=== PATIENT | female | born 1930 | race Caucasian/White ===

== ENCOUNTER 2017-07-31 15:28 | Inpatient (IN) | payer MEDICARE ==
[2017-07-31] VITALS (11 sets, daily range): BP systolic 167–195; BP diastolic 74–80; PULSE 50–67; RESP 16–20; TEMP 96.7–98.6; O2SAT 95–98
[~2017-07-31] VITALS: Ht 162.6 cm; Wt 76.7 kg
[~2017-07-31 15:28] MED LIST: ALEN1TAB48 PO; ASPI1TAB69 PO; ATOR10TA15 PO; COQ-100C2 PO; D31000CA3 PO; ENOX30P SQ; LOSA100T PO; METO25TA3 PO; MULT-135 PO; NIFE1TAB PO; PERC5TAB12 PO
[2017-07-31] MEDS ORDERED: SODIUM CHLORIDE 0.9% FLUSH 10 ML FLUSH IVF PRN (15:45)
--- NOTE | 2017-07-31 15:46 | PD ---
HPI Chief Complaint: fall Time Seen by Provider: 15:36 Travel History International Travel<30 days: No Contact w/Intl Traveler<30days: No Traveled to known affect area: No History of Present Illness HPI 87-year-old female with history of hypertension, presents emergency department for evaluation of an injury sustained to her left lower extremity when she tripped and fell over a rug today. Patient states she fell landing on her knee. Upon [facility] arrival, patient had an obvious deformity of the distal left thigh. She had also struck her face. She reports very mild facial and leg pain at this time, stating that she got "a lot of pain medication" in the ambulance. She tells me that she did have epistaxis initially but this has resolved. She denies any nausea or vomiting. She reports no focal deficits or weakness. She denies any alterations in sensation. Patient does have history of previous left and right hip fracture repairs following mechanical falls as well. PFSH Past Medical History Cardiovascular Problems: Yes (htn) High Cholesterol: Yes Diminished Hearing: Yes Hypertension: Yes Past Surgical History Appendectomy: Yes Social History Alcohol Use: No Tobacco Use: No Substance Use: No Allergies-Medications (Allergen,Severity, Reaction): Coded Allergies: No Known Allergies (Verified Adverse Reaction, Unknown, 07/31/17) Reported Meds & Prescriptions Reported Meds & Active Scripts Active Metoprolol Tartrate 25 Mg Tab 25 Mg PO Q12HR Lovenox Inj (Enoxaparin Sodium) 30 Mg/0.3 Ml Syr 30 Mg SQ Q12H Percocet (Oxycodone-Acetaminophen) 5-325 mg Tab 1 Tab PO Q4H PRN Reported Vitamin D-3 (Cholecalciferol) 1,000 Unit Cap 4,000 Units PO DAILY Nifedipine ER 24 HR (Nifedipine) 90 Mg Tab 90 Mg PO DAILY Multi Vitamin (Multiple Vitamin) 1 Tab Tab 1 Tab PO DAILY Losartan (Losartan Potassium) 100 Mg Tab 100 Mg PO DAILY Coq-10 (Coenzyme Q10 (Ubidecarenone)) 100 Mg Cap 200 Mg PO DAILY Atorvastatin (Atorvastatin Calcium) 10 Mg Tab 10 Mg PO HS Aspirin 81 Mg Tabdr 81 Mg PO DAILY Alendronate (Alendronate Sodium) 70 Mg Tab 70 Mg PO Q7D Review of Systems Except as stated in HPI: all other systems reviewed are Neg Physical Exam Narrative GENERAL: Well-nourished elderly female patient, no acute distress SKIN: Focused skin assessment warm/dry. HEAD: Normocephalic. Obvious nasal trauma. EYES: Pupils equal and round. No scleral icterus. No injection or drainage. ENT: Mucosa pink and moist. No erythema or exudates. No uvular edema. No uvular , palatal, or tonsillar deviation. Airway patent. Nasal turbinates appear normal with clotted nasal blood, no purulent drainage or septal hematoma. NECK: Trachea midline. No JVD. CARDIOVASCULAR: Regular rate and rhythm. RESPIRATORY: No accessory muscle use. Clear to auscultation. Breath sounds equal bilaterally. GASTROINTESTINAL: Abdomen soft, non-tender, nondistended. Hepatic and splenic margins not palpable. MUSCULOSKELETAL: Shortening of the left lower extremity with a lateral deformity of the left distal femur. There is a small puncture wound but this does not appear to obviously be communicating with the fracture. No clubbing. No cyanosis. No edema. Distal pulses are palpable. Cap refills within normal limits. Patient is able to flex and extend the toes and ankle the affected extremity. NEUROLOGICAL: Awake and alert. No obvious cranial nerve deficits. Motor grossly within normal limits. Normal speech. PSYCHIATRIC: Appropriate mood and affect; insight and judgment normal. Data Data Last Documented VS Vital Signs Date Time Temp Pulse Resp B/P (MAP) Pulse Ox O2 Delivery O2 Flow Rate FiO2 07/31/17 16:55 98 Room Air 07/31/17 16:55 07/31/17 16:10 18 07/31/17 16:10 67 07/31/17 15:41 98.6 Orders Orders Femur (Ap & Lat/2vws) (07/31/17 ) Chest, Single Ap (07/31/17 ) Electrocardiogram (07/31/17 ) Basic Metabolic Panel (Bmp) (07/31/17 15:44) Complete Blood Count With Diff (07/31/17 15:44) Prothrombin Time / Inr (Pt) (07/31/17 15:44) Act Partial Throm Time (Ptt) (07/31/17 15:44) Type And Screen (07/31/17 15:44) Ct Brain W/O Iv Contrast(Rout) (07/31/17 15:44) Ct Cerv Spine W/O Contrast (07/31/17 15:44) Ct Facial Bones W/O Iv Cont (07/31/17 15:44) Iv Access Insert/Monitor (07/31/17 15:44) Ecg Monitoring (07/31/17 15:44) Oximetry (07/31/17 15:44) Oxygen Administration (07/31/17 15:44) Sodium Chloride 0.9% Flush (Ns Flush) (07/31/17 15:45) Urinary Catheter Management CHELI.Q8H (07/31/17 16:34) Ondansetron Odt (Zofran Odt) (07/31/17 16:45) Cefazolin Inj (Ancef Inj) (07/31/17 17:15) Traction (07/31/17 17:09) Labs Laboratory Tests Test 07/31/17 13:55 White Blood Count 12.4 TH/MM3 Red Blood Count 4.06 MIL/MM3 Hemoglobin 12.6 GM/DL Hematocrit 36.5 % Mean Corpuscular Volume 89.9 FL Mean Corpuscular Hemoglobin 31.1 PG Mean Corpuscular Hemoglobin Concent 34.5 % Red Cell Distribution Width 13.4 % Platelet Count 237 TH/MM3 Mean Platelet Volume 8.8 FL Neutrophils (%) (Auto) 74.9 % Lymphocytes (%) (Auto) 16.9 % Monocytes (%) (Auto) 6.6 % Eosinophils (%) (Auto) 1.2 % Basophils (%) (Auto) 0.4 % Neutrophils # (Auto) 9.3 TH/MM3 Lymphocytes # (Auto) 2.1 TH/MM3 Monocytes # (Auto) 0.8 TH/MM3 Eosinophils # (Auto) 0.1 TH/MM3 Basophils # (Auto) 0.0 TH/MM3 CBC Comment DIFF FINAL Differential Comment Prothrombin Time 10.0 SEC Prothromb Time International Ratio 1.0 RATIO Activated Partial Thromboplast Time 22.6 SEC Blood Urea Nitrogen 17 MG/DL Creatinine 0.78 MG/DL Random Glucose 114 MG/DL Calcium Level 8.8 MG/DL Sodium Level 140 MEQ/L Potassium Level 4.1 MEQ/L Chloride Level 105 MEQ/L Carbon Dioxide Level 27.4 MEQ/L Anion Gap 8 MEQ/L Estimat Glomerular Filtration Rate 70 ML/MIN MDM Medical Decision Making Medical Screen Exam Complete: Yes Emergency Medical Condition: Yes Medical Record Reviewed: Yes Differential Diagnosis Fracture versus contusion versus sprain versus dislocation versus intracranial hemorrhage versus minor head injury versus concussion Narrative Course 87-year-old female presents emergency department following a trip and fall. Patient appears without distress. The left lower extremity is in traction and remains neurovascularly intact. There is shortening and deformity of the left distal femur. Patient has been treated for pain prior to arrival and does not want any additional pain control at this time. Laboratory Tests Test 07/31/17 13:55 White Blood Count 12.4 TH/MM3 Red Blood Count 4.06 MIL/MM3 Hemoglobin 12.6 GM/DL Hematocrit 36.5 % Mean Corpuscular Volume 89.9 FL Mean Corpuscular Hemoglobin 31.1 PG Mean Corpuscular Hemoglobin Concent 34.5 % Red Cell Distribution Width 13.4 % Platelet Count 237 TH/MM3 Mean Platelet Volume 8.8 FL Neutrophils (%) (Auto) 74.9 % Lymphocytes (%) (Auto) 16.9 % Monocytes (%) (Auto) 6.6 % Eosinophils (%) (Auto) 1.2 % Basophils (%) (Auto) 0.4 % Neutrophils # (Auto) 9.3 TH/MM3 Lymphocytes # (Auto) 2.1 TH/MM3 Monocytes # (Auto) 0.8 TH/MM3 Eosinophils # (Auto) 0.1 TH/MM3 Basophils # (Auto) 0.0 TH/MM3 CBC Comment DIFF FINAL Differential Comment Prothrombin Time 10.0 SEC Prothromb Time International Ratio 1.0 RATIO Activated Partial Thromboplast Time 22.6 SEC Blood Urea Nitrogen 17 MG/DL Creatinine 0.78 MG/DL Random Glucose 114 MG/DL Calcium Level 8.8 MG/DL Sodium Level 140 MEQ/L Potassium Level 4.1 MEQ/L Chloride Level 105 MEQ/L Carbon Dioxide Level 27.4 MEQ/L Anion Gap 8 MEQ/L Estimat Glomerular Filtration Rate 70 ML/MIN Last Impressions Maxillofacial CT 07/31/171543 Signed Impressions: CONCLUSION: 1. Mildly displaced right nasal bone fracture. Head CT 07/31/171543 Signed Impressions: CONCLUSION: 1. Examination within normal limits for age. No acute intracranial abnormaliti es. Cervical Spine CT 07/31/171543 Signed Impressions: CONCLUSION: 1. Partial fusion cervical spine as above. Osteopenia. No acute fracture ident ified. Femur X-Ray 07/31/17 0000 Signed Impressions: CONCLUSION: Comminuted displaced distal femoral shaft fracture. Osteopenia. Chest X-Ray 07/31/17 0000 Signed Impressions: CONCLUSION: Minimal basilar atelectasis. No effusion or dense consolidation. I discussed the findings with my attending physician who is also assessed the patient. Anderson catheter has been placed to minimize movement and for adequate intake and output. Patient has not eaten since 10 AM this morning. She will remain n.p.o. Call was placed to orthopedic surgeon as well as hospitalist for admission. Plan is discussed with the patient and her family members. They are in agreement with this plan of care. [address] Garner, orthopedic surgeon monotypist. She requests Ancef IV , n.p.o., and patient to be placed in Deleon's traction. Diagnosis Primary Impression: Femur fracture, left Qualified Codes: S72.402A - Unspecified fracture of lower end of left femur, initial encounter for closed fracture Additional Impression: Nasal fracture Qualified Codes: S02.2XXA - Fracture of nasal bones, initial encounter for closed fracture Admitting Information Admitting Physician Requests: Admit Condition: Stable Cyndi Faria July 31, 2017 15:46
[2017-07-31 16:23] LABS: AUTOMATED NEUTROPHIL # 9.3 TH/MM3 (1.8-7.7); BASOPHIL % 0.4 % (0.0-2.0); EOSINOPHIL # 0.1 TH/MM3 (0-0.4); EOSINOPHIL % 1.2 % (0.0-4.0); HEMATOCRIT 36.5 % (35.0-46.0); HEMOGLOBIN 12.6 GM/DL (11.6-15.3); LYMPH % 16.9 % (9.0-44.0); LYMPHOCYTE # 2.1 TH/MM3 (1.0-4.8); MEAN CELL VOLUME 89.9 FL (80.0-100.0); MEAN CORPUSCULAR HEMOGLOBIN 31.1 PG (27.0-34.0); MEAN CORPUSCULAR HGB CONC 34.5 % (32.0-36.0); MEAN PLATELET VOLUME 8.8 FL (7.0-11.0); MONO % 6.6 % (0.0-8.0); MONOCYTE # 0.8 TH/MM3 (0-0.9); NEUT % 74.9 % (16.0-70.0); PLATELET COUNT 237 TH/MM3 (150-450); RED BLOOD COUNT 4.06 MIL/MM3 (4.00-5.30); RED CELL DISTRIBUTION WIDTH 13.4 % (11.6-17.2); WHITE BLOOD COUNT 12.4 TH/MM3 (4.0-11.0)
--- NOTE | 2017-07-31 16:26 | PD ---
Physical Exam Narrative I, Dr. Armendariz, have reviewed the advance practice practitioner's documentation and am in agreement, met with the patient face to face, made the diagnosis, and the medical decision making was done by me. *My assessment and Findings: Patient is a 87 year old female who comes in after a slip and fall with pain to her left leg. Exam shows obvious deformity of the left femur. Patient in traction. Pedal pulse intact. Data Data Last Documented VS Vital Signs Date Time Temp Pulse Resp B/P (MAP) Pulse Ox O2 Delivery O2 Flow Rate FiO2 07/31/17 17:30 58 18 169/80 (109) 96 Nasal Cannula 2.00 07/31/17 15:41 98.6 Orders Orders Femur (Ap & Lat/2vws) (07/31/17 ) Chest, Single Ap (07/31/17 ) Electrocardiogram (07/31/17 ) Basic Metabolic Panel (Bmp) (07/31/17 15:44) Complete Blood Count With Diff (07/31/17 15:44) Prothrombin Time / Inr (Pt) (07/31/17 15:44) Act Partial Throm Time (Ptt) (07/31/17 15:44) Type And Screen (07/31/17 15:44) Ct Brain W/O Iv Contrast(Rout) (07/31/17 15:44) Ct Cerv Spine W/O Contrast (07/31/17 15:44) Ct Facial Bones W/O Iv Cont (07/31/17 15:44) Iv Access Insert/Monitor (07/31/17 15:44) Ecg Monitoring (07/31/17 15:44) Oximetry (07/31/17 15:44) Oxygen Administration (07/31/17 15:44) Sodium Chloride 0.9% Flush (Ns Flush) (07/31/17 15:45) Urinary Catheter Management CHELI.Q8H (07/31/17 16:34) Ondansetron Odt (Zofran Odt) (07/31/17 16:45) Cefazolin Inj (Ancef Inj) (07/31/17 17:15) Traction (07/31/17 17:09) Consult Orthopedic (07/31/17 ) Diet Npo (07/31/17 Dinner) Metoclopramide Inj (Reglan Inj) (07/31/17 17:30) (Hub Use Only)Inp Phy Cons/Ref (07/31/17 ) Admit Order (Ed Use Only) (07/31/17 17:43) Labs Laboratory Tests Test 07/31/17 13:55 White Blood Count 12.4 TH/MM3 Red Blood Count 4.06 MIL/MM3 Hemoglobin 12.6 GM/DL Hematocrit 36.5 % Mean Corpuscular Volume 89.9 FL Mean Corpuscular Hemoglobin 31.1 PG Mean Corpuscular Hemoglobin Concent 34.5 % Red Cell Distribution Width 13.4 % Platelet Count 237 TH/MM3 Mean Platelet Volume 8.8 FL Neutrophils (%) (Auto) 74.9 % Lymphocytes (%) (Auto) 16.9 % Monocytes (%) (Auto) 6.6 % Eosinophils (%) (Auto) 1.2 % Basophils (%) (Auto) 0.4 % Neutrophils # (Auto) 9.3 TH/MM3 Lymphocytes # (Auto) 2.1 TH/MM3 Monocytes # (Auto) 0.8 TH/MM3 Eosinophils # (Auto) 0.1 TH/MM3 Basophils # (Auto) 0.0 TH/MM3 CBC Comment DIFF FINAL Differential Comment Prothrombin Time 10.0 SEC Prothromb Time International Ratio 1.0 RATIO Activated Partial Thromboplast Time 22.6 SEC Blood Urea Nitrogen 17 MG/DL Creatinine 0.78 MG/DL Random Glucose 114 MG/DL Calcium Level 8.8 MG/DL Sodium Level 140 MEQ/L Potassium Level 4.1 MEQ/L Chloride Level 105 MEQ/L Carbon Dioxide Level 27.4 MEQ/L Anion Gap 8 MEQ/L Estimat Glomerular Filtration Rate 70 ML/MIN [facility] Supervised Visit with AARON: Yes Narrative Course Exam shows femur fracture. Patient received 10mg morphine by EMS, did not require further pain medicine. Admitted for further management. Diagnosis Primary Impression: Femur fracture, left Qualified Codes: S72.402A - Unspecified fracture of lower end of left femur, initial encounter for closed fracture Admitting Information Admitting Physician Requests: Admit Scripts Docusate Sodium (Dok) 100 Mg Cap 100 MG PO BID for constipation precautions, #30 CAP Prov: Rena Chung 08/03/17 Calcium Carbonate-Vitamin D (Calcium 600+D 200) 600-200 Mg-Unit Tab 1 TAB PO BID for Nutritional Supplement, #60 TAB 0 Refills Prov: Prasad Oleary PA/Pharmacy Billing Adjudicator PA 08/01/17 Cholecalciferol (Vitamin D3) 2,000 Unit Cap 2000 UNITS PO DAILY for Nutritional Supplement, #60 CAP 0 Refills Prov: Prasad Olearys PA/Pharmacy Billing Adjudicator PA 08/01/17 Ergocalciferol (Ergocalciferol) 50,000 Unit Cap 87158 UNITS PO Q7D for Nutritional Supplement, #8 CAP Prov: Prsaad Oleary PA/Pharmacy Billing Adjudicator PA 08/01/17 Rivaroxaban (Xarelto) 10 Mg Tab 10 MG PO DAILY for Blood Clot Prevention, #14 TAB 0 Refills Prov: Prasad Oleary PA/Pharmacy Billing Adjudicator PA 08/01/17 Hydrocodone-Acetaminophen (Hydrocodone-Acetaminophen) 7.5 Mg-325 Mg Tab 1 TAB PO Q4H Y for PAIN, #60 TAB 0 Refills Prov: Prasad Oleary PA/Pharmacy Billing Adjudicator PA 08/01/17 Wheelchair Elevated Leg (Wheelchair Elevated Leg) 1 Mis Mis EA .XX DIRECTED, #1 0 Refills Prov: Prasad Oleary PA/Pharmacy Billing Adjudicator PA 08/01/17 Walker/Adult/Folding (Walker/Adult/Folding) 1 Mis Mis EA .XX DIRECTED, #1 0 Refills Prov: Prasad Oleary PA/Pharmacy Billing Adjudicator PA 08/01/17 Vee Armendariz MD July 31, 2017 16:25
--- NOTE | 2017-07-31 16:43 | RADRPT ---
EXAM DATE: 07/31/2017 4:31 PM EDT AGE/SEX: 87 years / Female INDICATIONS: Pain in left leg post fall today. CLINICAL DATA: This is the patient's initial encounter. Patient reports that signs and symptoms have been present for 1 day and indicates a pain score of 10/10. MEDICAL/SURGICAL HISTORY: None. None. COMPARISON: [facility] – [place], CHEST SINGLE AP, 01/20/2016. . FINDINGS: No focal consolidation. Minimal basilar atelectasis. Mild cardiomegaly. Sclerotic changes in the righ t fifth rib posteriorly of uncertain etiology. Could be related to prior trauma. Remote left proximal humerus fracture with some residual deformity. CONCLUSION: Minimal basilar atelectasis. No effusion or dense consolidation. Electronically signed by: Hussein Collins MD 07/31/2017 4:42 PM EDT
--- NOTE | 2017-07-31 16:44 | RADRPT ---
EXAM DATE: 07/31/2017 4:33 PM EDT AGE/SEX: 87 years / Female INDICATIONS: Pain in left leg post fall today. CLINICAL DATA: This is the patient's initial encounter. Patient reports that signs and symptoms have been present for 1 day and indicates a pain score of 10/10. MEDICAL/SURGICAL HISTORY: None. None. COMPARISON: No prior [place] exams available for comparison. FINDINGS: There is previous fixation of the proximal left femur. There is a comminuted displaced fracture of th e distal femoral shaft with proximal fragment laterally displaced. Bones are osteopenic. CONCLUSION: Comminuted displaced distal femoral shaft fracture. Osteopenia. Electronically signed by: Hussein Collins MD 07/31/2017 4:43 PM EDT
[2017-07-31 16:45] LABS: BICARBONATE 27.4 MEQ/L (21.0-32.0); CALCIUM 8.8 MG/DL (8.5-10.1); CREATININE 0.78 MG/DL (0.50-1.00)
[2017-07-31] MEDS ORDERED: ONDANSETRON ODT 4 MG TAB PO ONE (16:45)
--- NOTE | 2017-07-31 16:49 | RADRPT ---
EXAM DATE: 07/31/2017 4:36 PM EDT AGE/SEX: 87 years / Female INDICATIONS: Trauma, fall CLINICAL DATA: This is the patient's initial encounter. Patient reports that signs and symptoms have been present for 1 day and indicates a pain score of 2/10. MEDICAL/SURGICAL HISTORY: Hypertension. None. RADIATION DOSE: 62.99 CTDI (mGy) COMPARISON: No prior [place] exams available for comparison. TECHNIQUE: CT of the head without contrast. Using automated exposure control and adjustment of the mA and/or kV according to patient size, radiation dose was kept as low as reasonably achievable to ob tain optimal diagnostic quality images. FINDINGS: Cerebrum: The ventricles are normal for age. No evidence of midline shift, mass lesion, hemorrhage or acute infarction. No extraaxial fluid collections are seen. Posterior Fossa: The cerebellum and brainstem are intact. The 4th ventricle is midline. The cerebe llopontine angle is unremarkable. Extracranial: The visualized portion of the orbits is intact. Skull: The calvaria is intact. No evidence of skull fracture. CONCLUSION: 1. Examination within normal limits for age. No acute intracranial abnormalities. Electronically signed by: Hussein Collins MD 07/31/2017 4:48 PM EDT
--- NOTE | 2017-07-31 16:52 | RADRPT ---
EXAM DATE: 07/31/2017 4:46 PM EDT AGE/SEX: 87 years / Female INDICATIONS: Trauma, fall CLINICAL DATA: This is the patient's initial encounter. Patient reports that signs and symptoms have been present for 1 day and indicates a pain score of 2/10. MEDICAL/SURGICAL HISTORY: Hypertension. None. RADIATION DOSE: 18.76 CTDI (mGy) COMPARISON: No prior [place] exams available for comparison. TECHNIQUE: Contiguous axial images were obtained using helical multirow detector technique. The vol umetric data was post-processed with multiplanar reconstruction in oblique axial, sagittal, and coron al planes. Using automated exposure control and adjustment of the mA and/or kV according to patient s ize, radiation dose was kept as low as reasonably achievable to obtain optimal diagnostic quality denis ges. FINDINGS: There is fusion across C5-6-7-T1. Slight reversal of normal cervical lordosis. Bones osteopenic. Mode rate degenerative changes at C3-4-5 and T1-2. No acute fracture is identified. There is mild lateral recess stenosis at C4-5 bilaterally. CONCLUSION: 1. Partial fusion cervical spine as above. Osteopenia. No acute fracture identified. Electronically signed by: Hussein Collins MD 07/31/2017 4:51 PM EDT
--- NOTE | 2017-07-31 16:54 | RADRPT ---
EXAM DATE: 07/31/2017 4:46 PM EDT AGE/SEX: 87 years / Female INDICATIONS: Trauma, fall CLINICAL DATA: This is the patient's initial encounter. Patient reports that signs and symptoms have been present for 1 day and indicates a pain score of 2/10. MEDICAL/SURGICAL HISTORY: Hypertension. None. RADIATION DOSE: 64.25 CTDI (mGy) COMPARISON: No prior [place] exams available for comparison. TECHNIQUE: Contiguous images in the axial and coronal planes were obtained using helical multirow de tector technique. Using automated exposure control and adjustment of the mA and/or kV according to p atient size, radiation dose was kept as low as reasonably achievable to obtain optimal diagnostic papi lity images. FINDINGS: There is a mildly displaced right nasal bone fracture. Paranasal sinuses are unremarkable. No other f acial bone fractures are identified. Globes intact. CONCLUSION: 1. Mildly displaced right nasal bone fracture. Electronically signed by: Hussein Collins MD 07/31/2017 4:53 PM EDT
[2017-07-31] MEDS ORDERED: METOCLOPRAMIDE HCL 10 MG/2 ML VIAL IV PUSH ONE (17:30)
[2017-07-31] MEDS ORDERED: COEN200C (19:44)
[2017-07-31] MEDS ORDERED: MULT-65 PO (19:44)
[2017-07-31] MEDS ORDERED: ASPI-516 CHEW (19:44)
--- NOTE | 2017-07-31 22:11 | HHI.HP ---
HPI Service [facility] Hospitalists Primary Care Physician Regis Mcgrath D.O. Admission Diagnosis L distal femur fx; nasal fx Chief Complaint: fall with left distal femur fracture ,nasal fracture Travel History International Travel<30 Days: No Contact w/Intl Traveler <30 Da: No Traveled to Known Affected Are: No History of Present Illness 87-year-old female with history of hypertension, presents emergency department for evaluation of an injury sustained to her left lower extremity when she tripped and fell over a rug today. Patient states she fell landing on her knee. Upon [facility] arrival, patient had an obvious deformity of the distal left thigh. She had also struck her face. She reports very mild facial and leg pain at this time, stating that she got "a lot of pain medication" in the ambulance. She tells me that she did have epistaxis initially but this has resolved. She denies any nausea or vomiting. She reports no focal deficits or weakness. She denies any alterations in sensation. Patient does have history of previous left and right hip fracture repairs following mechanical falls . In er found to have left femer fracture and nasal fracture admit for surgery, also has small wound less then1 cm on left leg not communicating with fracture will start on antibiotics. Review of Systems Musculoskeletal: COMPLAINS OF: Joint pain Past Family Social History Past Medical History hypertension,hyperlipidemia, Past Surgical History left and rt hip surgery appendix Reported Medications Vitamin D-3 (Cholecalciferol) 1,000 Unit Cap 4,000 Units PO DAILY Nifedipine ER 24 HR (Nifedipine) 90 Mg Tab 90 Mg PO DAILY Multi Vitamin (Multiple Vitamin) 1 Tab Tab 1 Tab PO DAILY Losartan (Losartan Potassium) 100 Mg Tab 100 Mg PO DAILY Coq-10 (Coenzyme Q10 (Ubidecarenone)) 100 Mg Cap 200 Mg PO DAILY Atorvastatin (Atorvastatin Calcium) 10 Mg Tab 10 Mg PO HS Aspirin 81 Mg Tabdr 81 Mg PO DAILY Alendronate (Tamara Allergies: Coded Allergies: No Known Allergies (Verified Allergy, Unknown, 07/31/17) Social History NS,ND Physical Exam Vital Signs Vital Signs Date Time Temp Pulse Resp B/P (MAP) Pulse Ox O2 Delivery O2 Flow Rate FiO2 07/31/17 21:36 55 18 167/74 (105) 98 Venturi Mask 28 07/31/17 19:44 56 20 179/77 (111) 98 Venturi Mask 28 07/31/17 19:07 60 20 184/78 (113) 97 Venturi Mask 28 07/31/17 18:30 50 18 184/77 (112) 95 Venturi Mask 28 07/31/17 17:30 58 18 169/80 (109) 96 Nasal Cannula 2.00 07/31/17 16:55 98 Room Air 07/31/17 16:55 98 Room Air 07/31/17 16:10 18 98 Room Air 07/31/17 16:10 67 18 195/79 (117) 98 Room Air 07/31/17 15:41 98.6 62 18 195/79 (117) 96 Physical Exam GENERAL: This is a well-nourished, well-developed patient, in no apparent distress. SKIN: No rashes, ecchymoses or lesions. Cool and dry. HEAD: Atraumatic. Normocephalic. No temporal or scalp tenderness. EYES: Pupils equal round and reactive. Extraocular motions intact. No scleral icterus. No injection or drainage. ENT: Nose without bleeding now,no purulent drainage or septal hematoma. Throat without erythema, tonsillar hypertrophy or exudate. Uvula midline. Airway patent. does have nasal fracture NECK: Trachea midline. No JVD or lymphadenopathy. Supple, nontender, no meningeal signs. CARDIOVASCULAR: Regular rate and rhythm without murmurs, gallops, or rubs. RESPIRATORY: Clear to auscultation. Breath sounds equal bilaterally. No wheezes , rales, or rhonchi. GASTROINTESTINAL: Abdomen soft, non-tender, nondistended. No hepato-splenomegaly , or palpable masses. No guarding. MUSCULOSKELETAL: Extremities without clubbing, cyanosis, or edema. lateral deformity left femur,small wound left leg, effusion, or edema noted. No calf tenderness. Negative Homans sign bilaterally. NEUROLOGICAL: Awake and alert. Cranial nerves II through XII intact. Motor and sensory grossly within normal limits. Five out of 5 muscle strength in all muscle groups. Normal speech. Laboratory Laboratory Tests Test 07/31/17 13:55 White Blood Count 12.4 Red Blood Count 4.06 Hemoglobin 12.6 Hematocrit 36.5 Mean Corpuscular Volume 89.9 Mean Corpuscular Hemoglobin 31.1 Mean Corpuscular Hemoglobin Concent 34.5 Red Cell Distribution Width 13.4 Platelet Count 237 Mean Platelet Volume 8.8 Neutrophils (%) (Auto) 74.9 Lymphocytes (%) (Auto) 16.9 Monocytes (%) (Auto) 6.6 Eosinophils (%) (Auto) 1.2 Basophils (%) (Auto) 0.4 Neutrophils # (Auto) 9.3 Lymphocytes # (Auto) 2.1 Monocytes # (Auto) 0.8 Eosinophils # (Auto) 0.1 Basophils # (Auto) 0.0 CBC Comment DIFF FINAL Differential Comment Prothrombin Time 10.0 Prothromb Time International Ratio 1.0 Activated Partial Thromboplast Time 22.6 Blood Urea Nitrogen 17 Creatinine 0.78 Random Glucose 114 Calcium Level 8.8 Sodium Level 140 Potassium Level 4.1 Chloride Level 105 Carbon Dioxide Level 27.4 Anion Gap 8 Estimat Glomerular Filtration Rate 70 Result Diagram: 07/31/17 1355 07/31/17 1355 Imaging Last [address] 07/31/17 1544 Signed Impressions: CONCLUSION: 1. Mildly displaced right nasal bone fracture. Head CT 07/31/17 1544 Signed Impressions: CONCLUSION: 1. Examination within normal limits for age. No acute intracranial abnormaliti es. Cervical Spine CT 07/31/17 1544 Signed Impressions: CONCLUSION: 1. Partial fusion cervical spine as above. Osteopenia. No acute fracture ident ified. Femur X-Ray 07/31/17 0000 Signed Impressions: CONCLUSION: Comminuted displaced distal femoral shaft fracture. Osteopenia. Chest X-Ray 07/31/17 0000 Signed Impressions: CONCLUSION: Minimal basilar atelectasis. No effusion or dense consolidation. Course in er given splint and started on oxygen started antibiotics Caprini VTE Risk Assessment Caprini VTE Risk Assessment: Mod/High Risk (score >= 2) Caprini Risk Assessment Model Point Value = 1 Point Value = 2 Point Value = 3 Point Value = 5 Age 41-60 Minor surgery BMI > 25 kg/m2 Swollen legs Varicose veins or History of unexplained or recurrent spontaneous Oral contraceptives or hormone replacement Sepsis (< 1 month) Serious lung disease, including pneumonia (< 1 month) Abnormal pulmonary function Acute myocardial infarction Congestive heart failure (< 1 month) History of inflammatory bowel disease Medical patient at bed rest Age 61-74 Arthroscopic surgery Major open surgery (> 45 min) Laparoscopic surgery (> 45 min) Malignancy Confined to bed (> 72 hours) Immobilizing plaster cast Central venous access Age >= 75 History of VTE Family history of VTE Factor V Leiden Prothrombin [id number] Lupus anticoagulant Anticardiolipin antibodies Elevated serum homocysteine Heparin-induced thrombocytopenia Other congenital or acquired thrombophilia Stroke (< 1 month) Elective arthroplasty Hip, pelvis, or leg fracture Acute spinal cord injury (< 1 month) Prophylaxis Regimen Total Risk Factor Score Risk Level Prophylaxis Regimen 0-1 Low Early ambulation 2 Moderate Order ONE of the following: *Sequential Compression Device (SCD) *Heparin 5000 units SQ BID 3-4 Higher Order ONE of the following medications: *Heparin 5000 units SQ TID *Enoxaparin/Lovenox 40 mg SQ daily (WT < 150 kg, CrCl > 30 mL/min) *Enoxaparin/Lovenox 30 mg SQ daily (WT < 150 kg, CrCl > 10-29 mL/min) *Enoxaparin/Lovenox 30 mg SQ BID (WT < 150 kg, CrCl > 30 mL/min) AND/OR *Sequential Compression Device (SCD) 5 or more Highest Order ONE of the following medications: *Heparin 5000 units SQ TID (Preferred with Epidurals) *Enoxaparin/Lovenox 40 mg SQ daily (WT < 150 kg, CrCl > 30 mL/min) *Enoxaparin/Lovenox 30 mg SQ daily (WT < 150 kg, CrCl > 10-29 mL/min) *Enoxaparin/Lovenox 30 mg SQ BID (WT < 150 kg, CrCl > 30 mL/min) AND *Sequential Compression Device (SCD) Assessment and Plan Problem List: (1) Femur fracture, left ICD Codes: S72.92XA - Unspecified fracture of left femur, initial encounter for closed fracture Status: Acute Plan: consult orthopedics NPO (2) Nasal fracture ICD Codes: S02.2XXA - Fracture of nasal bones, initial encounter for closed fracture Status: Acute Plan: will need ENT evaluation (3) Hypertension ICD Codes: I10 - Essential (primary) hypertension Status: Chronic Plan: continue current medications Assessment and Plan further plan as case develops has small wound less 1 cm not draining did start on ancef IV and will follow up on wound with nursing care Code Status full Discussed Condition With patient and family Physician Certification 2 Midnight Certification Type: Admission for Inpatient Services Order for Inpatient Services The services are ordered in accordance with Medicare regulations or non- Medicare payer requirements, as applicable. In the case of services not specified as inpatient-only, they are appropriately provided as inpatient services in accordance with the 2-midnight benchmark. Estimated LOS (days): 3 3 days is the estimated time the patient will need to remain in the hospital, assuming treatment plan goals are met and no additional complications. Post-Hospital Plan: SNF Problem Qualifiers (1) Femur fracture, left: Qualified Codes: S72.402A - Unspecified fracture of lower end of left femur, initial encounter for closed fracture (2) Nasal fracture: Qualified Codes: S02.2XXA - Fracture of nasal bones, initial encounter for closed fracture Som Reid MD July 31, 2017 22:11
[2017-07-31] MEDS ORDERED: MORPHINE SULFATE 4 MG/ML INJ IV PUSH PRN (22:15)
[2017-07-31] MEDS ORDERED: LACTATED RINGER'S 1000 ML IV PRN (23:15)
[2017-07-31] MEDS ORDERED: SODIUM CHLORID 0.9% 500 ML IV PRN (23:15)
[2017-07-31] MEDS ORDERED: POVIDONE IODINE 5% (ANTISEPSIS KIT) 4 APPLICATIONS EACH NARE PRN (23:15)
[2017-07-31] MEDS ORDERED: CHLORHEXIDINE GLUCONATE 2 % 1 PACK (2 CLOTHS) TOPICAL PRN (23:15)
[2017-08-01] VITALS (8 sets, daily range): BP systolic 128–155; BP diastolic 58–68; PULSE 49–86; RESP 17–18; TEMP 97.1–98.5; O2SAT 92–97
[2017-08-01 06:15] LABS: AUTOMATED NEUTROPHIL # 7.8 TH/MM3 (1.8-7.7); BASOPHIL % 0.2 % (0.0-2.0); EOSINOPHIL % 0.4 % (0.0-4.0); HEMATOCRIT 32.8 % (35.0-46.0); HEMOGLOBIN 11.1 GM/DL (11.6-15.3); LYMPHOCYTE # 2.2 TH/MM3 (1.0-4.8); MEAN CELL VOLUME 91.8 FL (80.0-100.0); MEAN CORPUSCULAR HEMOGLOBIN 31.1 PG (27.0-34.0); MEAN CORPUSCULAR HGB CONC 33.9 % (32.0-36.0); MEAN PLATELET VOLUME 8.3 FL (7.0-11.0); MONOCYTE # 0.9 TH/MM3 (0-0.9); NEUT % 71.4 % (16.0-70.0); PLATELET COUNT 236 TH/MM3 (150-450); RED BLOOD COUNT 3.57 MIL/MM3 (4.00-5.30); RED CELL DISTRIBUTION WIDTH 13.2 % (11.6-17.2); WHITE BLOOD COUNT 10.9 TH/MM3 (4.0-11.0)
--- NOTE | 2017-08-01 07:19 | PD.ORT.PN ---
Subjective Subjective Remarks s/p fall at home left knee pain no other complaints. Objective Vitals Vital Signs Date Time Temp Pulse Resp B/P (MAP) Pulse Ox O2 Delivery O2 Flow Rate FiO2 08/01/17 04:00 49 08/01/17 03:00 97.1 52 17 134/63 (86) 97 07/31/17 23:42 56 07/31/17 22:50 96.7 56 17 177/77 (110) 95 07/31/17 22:44 07/31/17 22:12 16 97 Nasal Cannula 3.00 07/31/17 21:36 55 18 167/74 (105) 98 Venturi Mask 07/31/17 19:44 56 20 179/77 (111) 98 Venturi Mask 07/31/17 19:07 60 20 184/78 (113) 97 Venturi Mask 07/31/17 18:30 50 18 184/77 (112) 95 Venturi Mask 07/31/17 17:30 58 18 169/80 (109) 96 Nasal Cannula 2.00 07/31/17 16:55 98 Room Air 07/31/17 16:55 98 Room Air 07/31/17 16:10 18 98 Room Air 07/31/17 16:10 67 18 195/79 (117) 98 Room Air 07/31/17 15:41 98.6 62 18 195/79 (117) 96 I/O 07/31/17 07/31/17 07/31/17 08/01/17 08/01/17 08/01/17 07:00 15:00 23:00 07:00 15:00 23:00 Intake Total 0 ml Output Total 1000 ml Balance -1000 ml Intake Oral 0 ml Output Urine Total 1000 ml # Bowel Movements 0 Result Diagram: 08/01/17 0525 07/31/17 1355 Other Results Laboratory Tests Test 07/31/17 13:55 Prothromb Time International Ratio 1.0 RATIO Prothrombin Time 10.0 SEC (9.8-11.6) Imaging Last [address] 07/31/17 2936 Signed Impressions: CONCLUSION: 1. Mildly displaced right nasal bone fracture. Head CT 07/31/17 0282 Signed Impressions: CONCLUSION: 1. Examination within normal limits for age. No acute intracranial abnormaliti es. Cervical Spine CT 07/31/17 1544 Signed Impressions: CONCLUSION: 1. Partial fusion cervical spine as above. Osteopenia. No acute fracture ident ified. Objective Remarks LLE: dressing in place. +bucks traction. NVI Assessment & Plan Assessment and Plan 1) Left distal Femur Fx -npo -consents -surgery today with Prasad Grant/Partition Notcher ALONZO August 01, 2017 07:19
[2017-08-01] MEDS: LOSARTAN 50 MG TAB PO SCH (08:05)
[2017-08-01] MEDS: NIFEdipine 90 MG SUSTAINED RELEASE TAB PO SCH (08:05)
[2017-08-01] MEDS: MULTIVITAMIN TAB PO SCH (08:05)
[2017-08-01] MEDS ORDERED: MORPHINE SULFATE 4 MG/ML INJ IV PUSH PRN (08:15)
[2017-08-01] MEDS ORDERED: CHOLECALCIFEROL (VIT D3) 1000 UNIT TAB PO SCH (09:00)
[2017-08-01] MEDS ORDERED: ACETAMINOPHEN/HYDROcodone 325 MG/5 MG TAB PO PRN (10:00)
[2017-08-01] MEDS ORDERED: ACETAMINOPHEN 325 MG TAB PO PRN (10:00)
--- NOTE | 2017-08-01 10:10 | HHI.PR ---
Subjective Remarks Patient laying in bed with traction awaiting surgery denies pain, offers no complaints at this time at bedside Objective Vitals Vital Signs Date Time Temp Pulse Resp B/P (MAP) Pulse Ox O2 Delivery O2 Flow Rate FiO2 08/01/17 08:00 97.7 60 18 128/58 (81) 97 08/01/17 04:00 49 08/01/17 03:00 97.1 52 17 134/63 (86) 97 07/31/17 23:42 56 07/31/17 22:50 96.7 56 17 177/77 (110) 95 07/31/17 22:44 07/31/17 22:12 16 97 Nasal Cannula 3.00 07/31/17 21:36 55 18 167/74 (105) 98 Venturi Mask 28 07/31/17 19:44 56 20 179/77 (111) 98 Venturi Mask 28 07/31/17 19:07 60 20 184/78 (113) 97 Venturi Mask 28 07/31/17 18:30 50 18 184/77 (112) 95 Venturi Mask 28 07/31/17 17:30 58 18 169/80 (109) 96 Nasal Cannula 2.00 07/31/17 16:55 98 Room Air 07/31/17 16:55 98 Room Air 07/31/17 16:10 18 98 Room Air 07/31/17 16:10 67 18 195/79 (117) 98 Room Air 07/31/17 15:41 98.6 62 18 195/79 (117) 96 Result Diagram: 08/01/17 0525 07/31/17 1355 Other Results Laboratory Tests Test 07/31/17 13:55 08/01/17 05:25 White Blood Count 12.4 TH/MM3 10.9 TH/MM3 Red Blood Count 4.06 MIL/MM3 3.57 MIL/MM3 Hemoglobin 12.6 GM/DL 11.1 GM/DL Hematocrit 36.5 % 32.8 % Mean Corpuscular Volume 89.9 FL 91.8 FL Mean Corpuscular Hemoglobin 31.1 PG 31.1 PG Mean Corpuscular Hemoglobin Concent 34.5 % 33.9 % Red Cell Distribution Width 13.4 % 13.2 % Platelet Count 237 TH/MM3 236 TH/MM3 Mean Platelet Volume 8.8 FL 8.3 FL Neutrophils (%) (Auto) 74.9 % 71.4 % Lymphocytes (%) (Auto) 16.9 % 20.0 % Monocytes (%) (Auto) 6.6 % 8.0 % Eosinophils (%) (Auto) 1.2 % 0.4 % Basophils (%) (Auto) 0.4 % 0.2 % Neutrophils # (Auto) 9.3 TH/MM3 7.8 TH/MM3 Lymphocytes # (Auto) 2.1 TH/MM3 2.2 TH/MM3 Monocytes # (Auto) 0.8 TH/MM3 0.9 TH/MM3 Eosinophils # (Auto) 0.1 TH/MM3 0.0 TH/MM3 Basophils # (Auto) 0.0 TH/MM3 0.0 TH/MM3 CBC Comment DIFF FINAL DIFF FINAL Differential Comment Prothrombin Time 10.0 SEC Prothromb Time International Ratio 1.0 RATIO Activated Partial Thromboplast Time 22.6 SEC Blood Urea Nitrogen 17 MG/DL Creatinine 0.78 MG/DL Random Glucose 114 MG/DL Calcium Level 8.8 MG/DL Sodium Level 140 MEQ/L Potassium Level 4.1 MEQ/L Chloride Level 105 MEQ/L Carbon Dioxide Level 27.4 MEQ/L Anion Gap 8 MEQ/L Estimat Glomerular Filtration Rate 70 ML/MIN Imaging Last [address] 07/31/171543 Signed Impressions: CONCLUSION: 1. Mildly displaced right nasal bone fracture. Head CT 07/31/171543 Signed Impressions: CONCLUSION: 1. Examination within normal limits for age. No acute intracranial abnormaliti es. Cervical Spine CT 07/31/174 Signed Impressions: CONCLUSION: 1. Partial fusion cervical spine as above. Osteopenia. No acute fracture ident ified. Femur X-Ray 07/31/17 0000 Signed Impressions: CONCLUSION: Comminuted displaced distal femoral shaft fracture. Osteopenia. Chest X-Ray 07/31/17 0000 Signed Impressions: CONCLUSION: Minimal basilar atelectasis. No effusion or dense consolidation. Objective Remarks GENERAL: This is a thin 87 year old female, well-developed patient, in no apparent distress. SKIN: bilateral periorbital ecchymosis CARDIOVASCULAR: Regular rate and rhythm RESPIRATORY: Clear to auscultation. Breath sounds equal bilaterally. GASTROINTESTINAL: Abdomen soft, non-tender, nondistended. Normal active bowel sounds MUSCULOSKELETAL: Extremities without clubbing, cyanosis, or edema. LLE currently in traction NEURO: Alert & Oriented. Moves all ext x4 A/P Problem List: (1) Femur fracture, left ICD Codes: S72.92XA - Unspecified fracture of left femur, initial encounter for closed fracture Status: Acute Plan: Mechanical Falf Femur fracture, left Left femur X ray reviewed and reveals Comminuted displaced distal femoral shaft fracture. Osteopenia consult orthopedics, appreciate input plan for surgical repair today Patient currently in traction NPO Acetaminophen, Allison and Morphine as needed for pain Bowel regiment Nasal fracture Maxillofacial CT reveals mildly displaced right nasal bone fracture ENT consulted, Dr. Bruno, awaiting further recommendations Hypertension continue home Metoprolol 25 mg PO BID, Nifedipine 90 mg PO daily and Losartan 100 mg PO daily with hold parameters monitor BP as BP may be lowered by pain medication Laceration small wound less then1 cm on left leg not communicating with fracture continue Ancef IV monitor DVT prophylaxis with SCD, further DVT prophylaxis per orthopedic surgery (2) Nasal fracture ICD Codes: S02.2XXA - Fracture of nasal bones, initial encounter for closed fracture Status: Acute (3) Hypertension ICD Codes: I10 - Essential (primary) hypertension Status: Chronic Assessment and Plan Patient examined. Assessment and plan formulated with Cande Dominguez PA-C. I agree with the above. To OR today for femur fx. nasal fx noted and ent consulted. Problem Qualifiers (1) Femur fracture, left: Qualified Codes: S72.402A - Unspecified fracture of lower end of left femur, initial encounter for closed fracture (2) Nasal fracture: Qualified Codes: S02.2XXA - Fracture of nasal bones, initial encounter for closed fracture Cande Dominguez August 01, 2017 10:10 Guy Hernandez MD August 01, 2017 10:55
[2017-08-01] MEDS ORDERED: BISACODYL 10 MG SUPP RECTAL PRN (10:15)
[2017-08-01] MEDS ORDERED: MAGNESIUM HYDROXIDE SUSP 30 ML CUP PO PRN (10:15)
[2017-08-01] MEDS ORDERED: XARE10TA PO (10:23)
[2017-08-01] MEDS ORDERED: WALKER/ADULT/FO1 MIS (10:23)
[2017-08-01] MEDS ORDERED: HYDR-3580 PO (10:23)
[2017-08-01] MEDS ORDERED: VITA500012 PO (10:23)
[2017-08-01] MEDS ORDERED: CALCTAB19 PO (10:23)
[2017-08-01] MEDS ORDERED: WHEEMIS3 (10:23)
[2017-08-01] MEDS ORDERED: VITA2000 PO (10:23)
[2017-08-01] MEDS ORDERED: VANCOMYCIN HCL 1000 MG VIAL ONE (10:43)
[2017-08-01] MEDS ORDERED: SODIUM CHLOR 0.9% 250 ML INJ 250 ML ONE (10:44)
[2017-08-01] MEDS ORDERED: GENTAMICIN SULFATE 80 MG/2 ML VIAL ONE (10:44)
[2017-08-01] MEDS ORDERED: LIDOCAINE HCL 1% PF 5 ML SYRINGE OTHER ONE (12:00)
[2017-08-01] MEDS ORDERED: NEOSTIGMINE 5 MG/5 ML SYRINGE IV PUSH ONE (12:00)
[2017-08-01] MEDS ORDERED: ROCURONIUM INJ 50 MG/5 ML SYRINGE IV PUSH ONE (12:00)
[2017-08-01] MEDS ORDERED: PHENYLEPH/NS 1000 MCG/10 ML SYR IV ONE (12:00)
[2017-08-01] MEDS ORDERED: ePHEDrine/NS 25 MG/5 ML SYRINGE IV ONE (12:00)
[2017-08-01] MEDS ORDERED: ONDANSETRON HCL 4 MG/2 ML VIAL IV PUSH ONE (12:00)
[2017-08-01] MEDS ORDERED: PROPOFOL 200 MG/20 ML AMP IV ONE (12:00)
[2017-08-01] MEDS ORDERED: GLYCOPYRROLATE 1 MG/5 ML SYRINGE IV PUSH ONE (12:00)
--- NOTE | 2017-08-01 12:58 | PD.OP ---
cc: Gabriele Santos MD Operative Report Date of Surgery: August 01, 2017 Preoperative Diagnosis: Displaced intra-articular left distal femur fracture Postoperative Diagnosis: Open displaced intra-articular left distal femur fracture Procedure: Irrigation debridement of open femur fracture, open reduction internal fixation of intra-articular supracondylar distal femur fracture Anesthesia: General Surgeon: Gabriele Santos Bead Worker Sewing(s): MILLA Flores PA-C The surgical procedure was assisted by my physician printing assistant. My P.A. presence was necessary throughout this case for the manipulation and positioning of the surgical extremity. My P.A. was assisting me throughout the duration of this procedure. The skill set of a physician printing assistant was medically necessary to complete this procedure. During the surgical case the surgical nurse practitioner was working at the back table and the physician printing assistant was directly assisting me. Operation and Findings: Implants used: ITS Plan of activity: Nonweightbearing, passive range of motion of knee Details of procedure: Patient was seen and evaluated preoperatively. Informed consent was obtained after detailed discussion of the risk and benefits of surgery. Operative site was marked. Patient was brought to the OR, placed on OR table, and given IV sedation with GETA. IV antibiotics were administered and timeout procedure was performed. The operative leg was prepped with alcohol, followed with Hibiclens, draped in usual sterile fashion. A timeout procedure was performed. Patient was found to have a small puncture wound over the anterior lateral thigh. The procedure began with a 4-inch incision over the lateral aspect of the distal femur. Subcutaneous tissue was dissected with Bovie. Iliotibial band was split in line with fibers. The proximal segment was buttonholed through the iliotibial band. Iliotibial band was opened. It was clear that the fracture was open and had penetrated the skin. At this point attention was turned to debridement of the fracture. Curettes and rongeurs were used to perform excisional debridement. Overall the wound is very clean with no visible gross contamination. After thorough debridement the wound was thoroughly irrigated with 3 L of sterile saline. Nexus return to open reduction internal fixation. At this point the fracture was visualized. There was a split between the condyles. Traction was applied. Fracture was manipulated. The medial and lateral condyles were reduced first. Next the shaft was reduced to the condyles. The fracture reduced into excellent alignment. Steinmann pins were used to hold provisional fixation. At this point attention was turned to plate placement. A lateral condylar plate was selected and attached to the insertion handle jig. The plate was placed underneath the vastus lateralis. Steinmann pins were used to hold the plate to bone. Multiplanar fluoroscopy confirmed appropriate placement of plate. Multiple 4.5 cortical screws were now placed in percutaneous fashion through the plate. The plate was compressed to bone. Multiple locking screws were now placed in the distal segment of the distal femur. Additional locking screws were placed into the femoral shaft. All screws were predrilled and premeasured for appropriate length. Patient has a pre-existing nail in the proximal femur. The plate was selected long enough to overlap the nail. 2 cables were carefully placed around the mid femur to overlap both the nail and the plate. Care was taken to avoid injury to neurovascular structures. Cables were tensioned, crimped, and cut appropriately. Final fluoroscopy revealed excellent alignment of fracture with well-placed hardware. Wound was thoroughly irrigated. Fascia was closed with #1 Vicryl. Subcutaneous tissue was closed with 3-0 Vicryl. Skin was closed with teetee. Sterile dressings were applied. The patient was placed into a knee immobilizer and transferred to recovery in stable condition. Needle and sponge counts were correct. Gabriele Santos MD August 01, 2017 12:58
[2017-08-01] MEDS ORDERED: Post-op Orders (for Pharmacy) XX ONE (13:00)
[2017-08-01] MEDS ORDERED: NALOXONE HCL 0.4 MG/ML AMP IV PUSH PRN (13:00)
[2017-08-01] MEDS ORDERED: NURSING INFORMATION XX PRN (13:00)
[2017-08-01] MEDS ORDERED: diphenhydrAMINE HCL 25 MG CAP PO PRN (13:00)
[2017-08-01] MEDS ORDERED: DO NOT ADM ANY ANTICOAGULANT DRUGS PRN (13:30)
--- NOTE | 2017-08-01 14:08 | EKG ---
Date Performed: 07/31/2017 Time Performed: 16:50:53 PTAGE: 87 years EKG: Sinus rhythm NORMAL ECG PREVIOUS TRACING : 01/20/2016 18.34 Since the previous tracing, no significant change noted DOCTOR: Momo Hernadez Interpretating Date/Time 08/01/2017 14:03:17
--- NOTE | 2017-08-01 14:58 | MB ---
cc: Gabriele Rhodes MD DATE: 08/01/2017 REASON FOR CONSULTATION: Displaced left distal femur fracture. CONSULTING PHYSICIAN: Guy Hernandez MD HISTORY OF PRESENT ILLNESS: Mrs. Willoughby is an 87-year-old female who has a history of hypertension. She tripped and fell over a rug at home. She landed on her left leg and knee. She had immediate left leg pain. She also hit her face. She denies dizziness, syncope or loss of consciousness. She describes a mechanical fall. She presented to the emergency room where she was found to have a nasal fracture, as well as a left distal femur fracture. She is currently awake and alert on the orthopedic floor. Her is at bedside. Pain is worse with movement and is improved with rest. PAST SURGICAL HISTORY: Left hip intramedullary nail fixation, right hip surgery, appendectomy. ILLNESSES: Hypertension and high cholesterol. MEDICATIONS: Include: Vitamin D3, nifedipine, losartan, atorvastatin, aspirin and alendronate. ALLERGIES: NO KNOWN DRUG ALLERGIES. SOCIAL HISTORY: The patient denies alcohol, tobacco or drug use. She lives at home. REVIEW OF SYSTEMS: The patient denies headache, visual changes, neck pain, chest pain, shortness of breath, abdominal pain, nausea, vomiting, recent weight loss, fevers or chills, numbness or tingling of extremities, or recent weight loss. She complains of left knee pain. The pain is worse with movement. LABORATORY DATA: The patient has a white blood cell count of 10.9, hematocrit 32.8, platelet count of 236. INR of 1.0. Potassium 4.1, creatinine 0.78. X-RAYS: X-rays of the left femur were reviewed. X-rays reveal a displaced left distal femur supracondylar fracture. She also has an intramedullary nail in her left hip. PHYSICAL EXAMINATION: GENERAL: The patient is a pleasant 87-year-old female. She is awake and alert. VITAL SIGNS: Temperature 98.1, pulse 55, respirations 16, blood pressure 120/62, O2 saturations 95% on 2 liters nasal cannula. HEAD: The patient has some bruising and swelling of her face. EYES: Pupils are equal. NECK: Soft, nontender. The trachea is in the midline. ABDOMEN: Soft, nontender, nondistended. EXTREMITIES: Examination of bilateral upper extremities reveals no obvious pain or deformity with shoulder, elbow or wrist motion. She has good cap refill in all fingers. Radial pulses are palpable. Sensation is intact in all fingers. Examination of the right leg reveals no pain with hip, knee or ankle motion. Skin is intact. Sensation is intact. Skin is intact. Examination of the left leg reveals no tenderness around her hip or ankle. Sensation is intact in the left foot. Dorsalis pedis pulses palpable. She has mild to moderate swelling around the knee. Thigh and calf compartments are soft. Sensation is intact to the left leg. IMPRESSION: 1. Hypertension. 2. High cholesterol. 3. Osteoporosis. 4. Displaced left distal femur fracture. PLAN: Treatment options were discussed with the patient and her . At this point, I would recommend surgical open reduction internal fixation of the left femur. Risks of surgery include bleeding, infection, injuries to arteries, nerves and blood vessels, nonunion, malunion, painful hardware, as well as medical complications including blood clot, stroke, heart attack and . All questions were answered. I plan on surgery today. Postoperatively, I will consult physical therapy. I will also start her on calcium and vitamin D. She will be started on DVT prophylaxis as well. All questions were answered. A mid-level provider in my office, nurse practitioner or PA, may see this patient on a follow-up basis and continue to implement the objective of this plan including: Starting or adjusting medications, injections of muscle, tendon, bursa or joints, cast application, orthotic or brace application, physical therapy, further radiographic studies including x-ray, MRI, CT, ultrasounds or bone scan, vascular studies, neurologic studies, or other specialist consultations, and proceeding with surgical management as appropriate. MD STEPHENIE Santa/CHAYO , 02:40 PM , 02:57 PM
--- NOTE | 2017-08-01 15:10 | RADRPT ---
EXAM DATE: 08/01/2017 2:58 PM EDT AGE/SEX: 87 years / Female INDICATIONS: ORIF left distal femur fracture. CLINICAL DATA: This is the patient's subsequent encounter. Patient reports that signs and symptoms h ave been present for 2 days and indicates a pain score of Nonresponsive. MEDICAL/SURGICAL HISTORY: . Unobtainable. . ORIF left femur. COMPARISON: [facility] [place], FEMUR LEFT (AP & LAT/2VWS), 07/31/2017. . FINDINGS: Multiple intraprocedural fluoroscopic images demonstrate interval plate and screw fixation of comminu vincent distal left femoral fracture. The fracture fragments are in near-anatomic alignment. Hardware is well-positioned. Redemonstration of intramedullary micha in the proximal femur. CONCLUSION: 1. Left distal femoral ORIF, as above. Electronically signed by: Zaki Aparicio MD 08/01/2017 3:08 PM EDT
[2017-08-01] MEDS: LACTATED RINGER'S 1000 ML INJ 1,000 ML IV SCH (15:54)
[2017-08-01] MEDS ORDERED: ONDANSETRON ODT 4 MG TAB PO PRN (16:00)
[2017-08-01] MEDS ORDERED: ERGOCALCIFEROL (VIT D2) 50,000 UNIT CAP PO SCH (17:00)
[2017-08-01] MEDS: CALCIUM/VITAMIN D 250 MG/125 U TAB PO SCH (17:02)
[2017-08-01] MEDS: ceFAZolin 2 GM PREMIX 50 ML IV SCH (17:02)
[2017-08-01] MEDS: DOCUSATE SODIUM 100 MG CAP PO SCH (19:38)
[2017-08-01] MEDS: ATORVASTATIN 10 MG TAB PO SCH (19:39)
[2017-08-01] MEDS: METOPROLOL TARTRATE 25 MG TAB PO SCH (20:56)
[2017-08-01] MEDS: VANCOMYCIN INJ 1,000 MG in SODIUM CHLOR 0.9% 250 ML INJ 250 ML IV SCH (23:47)
[2017-08-01] MEDS: ACETAMINOPHEN/HYDROcodone 325 MG/7.5 MG TAB PO PRN (23:48)
[2017-08-02] MEDS: ceFAZolin 2 GM PREMIX 50 ML IV SCH ×3 (02:01→18:09)
[2017-08-02] MEDS: LACTATED RINGER'S 1000 ML INJ 1,000 ML IV SCH (03:01)
[2017-08-02] MEDS: ACETAMINOPHEN/HYDROcodone 325 MG/7.5 MG TAB PO PRN ×2 (03:01→18:09)
[2017-08-02 03:34] VITALS: BP 161/70; PULSE 89; RESP 18; TEMP 98.1; O2SAT 92
--- NOTE | 2017-08-02 06:36 | PD.ORT.PN ---
Subjective Subjective Remarks POD 1 s/p ORIF let distal femur doing well.states back pain but other than that, no pain and doing well Objective Vitals Vital Signs Date Time Temp Pulse Resp B/P (MAP) Pulse Ox O2 Delivery O2 Flow Rate FiO2 08/02/17 03:34 98.1 89 18 161/70 (100) 92 08/01/17 23:40 98.5 86 17 155/68 (97) 93 08/01/17 21:46 74 08/01/17 20:32 96 Nasal Cannula 2.00 08/01/17 19:33 97.4 74 17 139/65 (89) 96 08/01/17 16:00 97.7 76 18 137/63 (87) 92 08/01/17 14:00 98.1 55 16 120/62 (81) 95 Nasal Cannula 2 08/01/17 13:45 60 16 119/60 (79) 94 Nasal Cannula 2 08/01/17 13:30 67 15 114/56 (75) 98 Nasal Cannula 3 08/01/17 13:15 98.1 78 18 116/56 (76) 95 Nasal Cannula 3 08/01/17 10:50 75 18 159/66 (97) 96 08/01/17 10:50 Nasal Cannula 3 08/01/17 10:22 97.3 79 18 168/76 (106) 95 08/01/17 10:22 Nasal Cannula 3 08/01/17 08:00 97.7 60 18 128/58 (81) 97 I/O 08/01/17 08/01/17 08/01/17 08/02/17 08/02/17 08/02/17 07:00 15:00 23:00 07:00 15:00 23:00 Intake Total 0 ml 500 ml 150 ml 300 ml Output Total 1000 ml 450 ml 850 ml Balance -1000 ml 50 ml 150 ml -550 ml Intake Oral 0 ml IV Total 150 ml 300 ml Other 500 ml Output Urine Total 1000 ml 250 ml 850 ml Estimated Blood Loss 200 ml # Bowel Movements 0 Result Diagram: 08/01/17 0525 07/31/17 1355 Imaging Last [address] 07/31/17 2503 Signed Impressions: CONCLUSION: 1. Mildly displaced right nasal bone fracture. Head CT 07/31/17 4852 Signed Impressions: CONCLUSION: 1. Examination within normal limits for age. No acute intracranial abnormaliti es. Cervical Spine CT 07/31/17 1544 Signed Impressions: CONCLUSION: 1. Partial fusion cervical spine as above. Osteopenia. No acute fracture ident ified. Objective Remarks LLE: dressings clean and dry. intact. NVI. +CKS Assessment & Plan Assessment and Plan 1) Left distal Femur Fx s/p ORIF - POD 1 -NWB -no quad sets/leg lifts -PROM 0-90deg -CKS at all times except for PT -daily dressing changes POD 2 -CM for rehab placement -f/u with Carmelo or PA in 2 weeks Prasad Oleary/Manager Fleet PA August 02, 2017 06:36
[2017-08-02 08:02] VITALS: PULSE 86
[2017-08-02 08:09] LABS: AUTOMATED NEUTROPHIL # 7.6 TH/MM3 (1.8-7.7); BASOPHIL % 0.2 % (0.0-2.0); EOSINOPHIL % 0.4 % (0.0-4.0); HEMATOCRIT 25.6 % (35.0-46.0); HEMOGLOBIN 8.6 GM/DL (11.6-15.3); LYMPH % 19.9 % (9.0-44.0); LYMPHOCYTE # 2.2 TH/MM3 (1.0-4.8); MEAN CELL VOLUME 91.8 FL (80.0-100.0); MEAN CORPUSCULAR HGB CONC 33.8 % (32.0-36.0); MEAN PLATELET VOLUME 8.5 FL (7.0-11.0); MONOCYTE # 1.2 TH/MM3 (0-0.9); NEUT % 68.5 % (16.0-70.0); PLATELET COUNT 192 TH/MM3 (150-450); RED BLOOD COUNT 2.78 MIL/MM3 (4.00-5.30); RED CELL DISTRIBUTION WIDTH 13.2 % (11.6-17.2)
[2017-08-02] MEDS: CHOLECALCIFEROL (VIT D3) 1000 UNIT TAB PO SCH (08:20)
[2017-08-02] MEDS: DOCUSATE SODIUM 100 MG CAP PO SCH ×2 (08:20→19:58)
[2017-08-02] MEDS: LOSARTAN 50 MG TAB PO SCH (08:20)
[2017-08-02] MEDS: METOPROLOL TARTRATE 25 MG TAB PO SCH ×2 (08:20→19:58)
[2017-08-02] MEDS: CALCIUM/VITAMIN D 250 MG/125 U TAB PO SCH ×3 (08:20→18:08)
[2017-08-02] MEDS: MULTIVITAMIN TAB PO SCH (08:20)
[2017-08-02] MEDS: NIFEdipine 90 MG SUSTAINED RELEASE TAB PO SCH (08:21)
[2017-08-02 10:00] VITALS: BP 132/60; PULSE 93; RESP 18; TEMP 98.3; O2SAT 92
--- NOTE | 2017-08-02 10:38 | HHI.PR ---
Subjective Remarks Pain controlled currently Pt tolerating diet well +Flatus Objective Vitals Vital Signs Date Time Temp Pulse Resp B/P (MAP) Pulse Ox O2 Delivery O2 Flow Rate FiO2 08/02/17 10:00 98.3 93 18 132/60 (84) 92 08/02/17 03:34 98.1 89 18 161/70 (100) 92 08/01/17 23:40 98.5 86 17 155/68 (97) 93 08/01/17 21:46 74 08/01/17 20:32 96 Nasal Cannula 2.00 08/01/17 19:33 97.4 74 17 139/65 (89) 96 08/01/17 16:00 97.7 76 18 137/63 (87) 92 08/01/17 14:00 98.1 55 16 120/62 (81) 95 Nasal Cannula 2 08/01/17 13:45 60 16 119/60 (79) 94 Nasal Cannula 2 08/01/17 13:30 67 15 114/56 (75) 98 Nasal Cannula 3 08/01/17 13:15 98.1 78 18 116/56 (76) 95 Nasal Cannula 3 08/01/17 10:50 75 18 159/66 (97) 96 08/01/17 10:50 Nasal Cannula 3 Result Diagram: 08/02/17 0740 07/31/17 1355 Other Results Laboratory Tests Test 07/31/17 13:55 08/01/17 05:25 08/02/17 07:40 White Blood Count 12.4 TH/MM3 10.9 TH/MM3 11.0 TH/MM3 Red Blood Count 4.06 MIL/MM3 3.57 MIL/MM3 2.78 MIL/MM3 Hemoglobin 12.6 GM/DL 11.1 GM/DL 8.6 GM/DL Hematocrit 36.5 % 32.8 % 25.6 % Mean Corpuscular Volume 89.9 FL 91.8 FL 91.8 FL Mean Corpuscular Hemoglobin 31.1 PG 31.1 PG 31.0 PG Mean Corpuscular Hemoglobin Concent 34.5 % 33.9 % 33.8 % Red Cell Distribution Width 13.4 % 13.2 % 13.2 % Platelet Count 237 TH/MM3 236 TH/MM3 192 TH/MM3 Mean Platelet Volume 8.8 FL 8.3 FL 8.5 FL Neutrophils (%) (Auto) 74.9 % 71.4 % 68.5 % Lymphocytes (%) (Auto) 16.9 % 20.0 % 19.9 % Monocytes (%) (Auto) 6.6 % 8.0 % 11.0 % Eosinophils (%) (Auto) 1.2 % 0.4 % 0.4 % Basophils (%) (Auto) 0.4 % 0.2 % 0.2 % Neutrophils # (Auto) 9.3 TH/MM3 7.8 TH/MM3 7.6 TH/MM3 Lymphocytes # (Auto) 2.1 TH/MM3 2.2 TH/MM3 2.2 TH/MM3 Monocytes # (Auto) 0.8 TH/MM3 0.9 TH/MM3 1.2 TH/MM3 Eosinophils # (Auto) 0.1 TH/MM3 0.0 TH/MM3 0.0 TH/MM3 Basophils # (Auto) 0.0 TH/MM3 0.0 TH/MM3 0.0 TH/MM3 CBC Comment DIFF FINAL DIFF FINAL DIFF FINAL Differential Comment Prothrombin Time 10.0 SEC Prothromb Time International Ratio 1.0 RATIO Activated Partial Thromboplast Time 22.6 SEC Blood Urea Nitrogen 17 MG/DL Creatinine 0.78 MG/DL Random Glucose 114 MG/DL Calcium Level 8.8 MG/DL Sodium Level 140 MEQ/L Potassium Level 4.1 MEQ/L Chloride Level 105 MEQ/L Carbon Dioxide Level 27.4 MEQ/L Anion Gap 8 MEQ/L Estimat Glomerular Filtration Rate 70 ML/MIN Imaging Last [address] 07/31/171543 Signed Impressions: CONCLUSION: 1. Mildly displaced right nasal bone fracture. Head CT 07/31/171543 Signed Impressions: CONCLUSION: 1. Examination within normal limits for age. No acute intracranial abnormaliti es. Cervical Spine CT 07/31/171543 Signed Impressions: CONCLUSION: 1. Partial fusion cervical spine as above. Osteopenia. No acute fracture ident ified. Femur X-Ray 07/31/17 Signed Impressions: CONCLUSION: Comminuted displaced distal femoral shaft fracture. Osteopenia. Chest X-Ray 07/31/17 Signed Impressions: CONCLUSION: Minimal basilar atelectasis. No effusion or dense consolidation. Objective Remarks GENERAL: This is a thin 87 year old female, well-developed patient, in no apparent distress. SKIN: bilateral periorbital ecchymosis CARDIO: Regular rate and rhythm RESP: CTA bilaterally. ABD: +BS, soft, non-tender, nondistended. EXT: LLE dressings are c/d/i A/P Problem List: (1) Femur fracture, left ICD Codes: S72.92XA - Unspecified fracture of left femur, initial encounter for closed fracture Status: Acute Plan: Mechanical Falf Femur fracture, left, open - Patient is an 87 y/o female with HTN who presented to the ED at [facility] on for evaluation of an injury sustained to her left lower extremity when she tripped and fell over a rug - Left femur X ray reviewed and reveals Comminuted displaced distal femoral shaft fracture. Osteopenia - Appreciate consult from orthopedics - Pt underwent I&D of open femur fracture, open reduction internal fixation of intra-articular supracondylar distal femur fracture on 08/01/[address] Rhodes - Vancomycin and Cefazolin ordered by Ortho for open fracture - Acetaminophen, [place] and Morphine as needed for pain - Constipation precautions - IS - PT daily - Pt is NWB per ortho orders - DVT prophylaxis with Lovenox is ordered Nasal fracture - Maxillofacial CT reveals mildly displaced right nasal bone fracture - ENT consulted, Dr. Bruno, awaiting further recommendations Hypertension - Pt continued on home Metoprolol 25 mg PO BID, Nifedipine 90 mg PO daily and Losartan 100 mg PO daily with hold parameters - Monitor BP as BP may be lowered by pain medication DVT prophylaxis with Lovenox (2) Nasal fracture ICD Codes: S02.2XXA - Fracture of nasal bones, initial encounter for closed fracture Status: Acute (3) Hypertension ICD Codes: I10 - Essential (primary) hypertension Status: Chronic Assessment and Plan Patient examined. Assessment and plan formulated with Rena Chung PA-C. I agree with the above. femur fx. s/p orif. await d/c to snf monitor blood loss anemia Problem Qualifiers (1) Femur fracture, left: Qualified Codes: S72.402A - Unspecified fracture of lower end of left femur, initial encounter for closed fracture (2) Nasal fracture: Qualified Codes: S02.2XXA - Fracture of nasal bones, initial encounter for closed fracture Rena Chung August 02, 2017 10:38 Guy Hernandez MD August 02, 2017 15:01
[2017-08-02 12:00] VITALS: BP 159/68; PULSE 74; RESP 17; TEMP 97.8; O2SAT 95
[2017-08-02] MEDS: VANCOMYCIN INJ 1,000 MG in SODIUM CHLOR 0.9% 250 ML INJ 250 ML IV SCH (12:12)
[2017-08-02] MEDS: ENOXAPARIN SODIUM 30 MG/0.3 ML SYRINGE SQ SCH (12:12)
[2017-08-02 16:00] VITALS: BP 134/58; PULSE 87; RESP 16; TEMP 97.9; O2SAT 95
--- NOTE | 2017-08-02 17:41 | MB ---
cc: Maximino Bruno MD, Mario C MD DATE: 08/02/2017 REQUESTING PROVIDER: Dr. Reid. REASON FOR ENT CONSULTATION: Nasal fracture. HISTORY OF PRESENT ILLNESS: Tania Willoughby is a healthy 87-year-old woman who suffered a fall in her home on 07/31/2017, striking her knee and her face. She suffered a fracture of the left distal femur, which extended into the knee joint that was surgically repaired on the . A CT scan obtained of her facial bones showed a mildly depressed fracture of the left nasal bone and possible hematoma of the anterior nasal septum. The patient reports now her nose is not painful and nasal airflow is close to what she was accustomed prior to her injury. She states it bled fairly heavily at the time of injury and she has gotten some dry blood from her nose. She notes that her sense of smell seems to be normal following this injury. PAST MEDICAL HISTORY: Significant for hypertension and hyperlipidemia. PAST SURGICAL HISTORY: Includes right hip fracture repair. MEDICATIONS PRIOR TO ADMISSION: Include: 1. Nifedipine. 2. Losartan. 3. Atorvastatin. 4. Aspirin 5. Alendronate. ALLERGIES: SHE HAS NO KNOWN DRUG ALLERGIES. SOCIAL HISTORY: She lives with her . No smoking, no drinking, no drug abuse. PHYSICAL EXAMINATION: GENERAL: She is alert and cooperative. VITAL SIGNS: Temperature is 97.8, respirations 17, BP 160/68, pulse oximetry 95% on room air. HEAD: Normocephalic and atraumatic. FACE: There is bilateral purplish ecchymosis in the cheeks and over the nasal bridge. There is mild nasal edema and a palpable slight depression of the left nasal bone. ORAL CAVITY AND OROPHARYNX: Normal. Teeth in good condition. Tongue and mandible normal. NECK: No nodes or masses. Larynx and trachea midline. NOSE: Fiberoptic nasal endoscopy shows patent nasal airway on the left, possible mild hematoma of the right anterior septum. No evidence of septal fracture. EARS: Normal auricles, ear canals and tympanic membranes. ASSESSMENT: 1. Closed nasal fracture. 2. Possible septal hematoma. PLAN: I have discussed these findings today with the patient and her . I advised them that if she is unhappy with the appearance of her nose or with her nasal airflow, then these can be repaired surgically following a fracture. I informed him that I think it is unlikely she will be unhappy with the appearance of her nose. It is very minimally displaced and will probably appear normal again when the edema has resolved. She states she will be leaving on Monday for the [facility] rehab facility. I have asked her to come and see me as an outpatient on 08/14/2016 in our [facility] office for reevaluation of her symptoms and if she is not happy with the condition of her nose, we can plan repair of nasal fracture and septal hematoma at that time. I further advised her if she is content with the function and appearance of her nose prior to that visit, she can just cancel. MD ERIKA Johnson/KD , 04:54 PM , 05:40 PM
[2017-08-02] MEDS: ATORVASTATIN 10 MG TAB PO SCH (19:58)
[2017-08-02 20:00] VITALS: BP 122/55; PULSE 81; RESP 18; TEMP 99.1; O2SAT 95
[2017-08-03 00:01] VITALS: BP 140/80; PULSE 81; RESP 18; TEMP 99; O2SAT 94
[2017-08-03] MEDS: VANCOMYCIN INJ 1,000 MG in SODIUM CHLOR 0.9% 250 ML INJ 250 ML IV SCH (00:36)
[2017-08-03 00:44] VITALS: PULSE 75
[2017-08-03] MEDS: ceFAZolin 2 GM PREMIX 50 ML IV SCH ×2 (01:53→10:08)
[2017-08-03 06:05] LABS: AUTOMATED NEUTROPHIL # 8.1 TH/MM3 (1.8-7.7); BASOPHIL # 0.1 TH/MM3 (0-0.2); BASOPHIL % 0.5 % (0.0-2.0); EOSINOPHIL # 0.2 TH/MM3 (0-0.4); EOSINOPHIL % 1.4 % (0.0-4.0); HEMATOCRIT 23.8 % (35.0-46.0); HEMOGLOBIN 8.1 GM/DL (11.6-15.3); LYMPHOCYTE # 2.4 TH/MM3 (1.0-4.8); MEAN CELL VOLUME 91.7 FL (80.0-100.0); MEAN CORPUSCULAR HEMOGLOBIN 31.4 PG (27.0-34.0); MEAN CORPUSCULAR HGB CONC 34.3 % (32.0-36.0); MEAN PLATELET VOLUME 8.7 FL (7.0-11.0); MONO % 11.7 % (0.0-8.0); MONOCYTE # 1.4 TH/MM3 (0-0.9); NEUT % 66.4 % (16.0-70.0); PLATELET COUNT 183 TH/MM3 (150-450); RED BLOOD COUNT 2.59 MIL/MM3 (4.00-5.30); RED CELL DISTRIBUTION WIDTH 13.1 % (11.6-17.2); WHITE BLOOD COUNT 12.1 TH/MM3 (4.0-11.0)
[2017-08-03 06:39] LABS: BICARBONATE 25.7 MEQ/L (21.0-32.0); CALCIUM 7.9 MG/DL (8.5-10.1); CREATININE 0.71 MG/DL (0.50-1.00); MAGNESIUM 1.9 MG/DL (1.5-2.5)
--- NOTE | 2017-08-03 06:44 | PD.ORT.PN ---
Subjective Subjective Remarks POD 2 s/p ORIF let distal femur doing well.states out of bed with therapy yesterday. no complaints Objective Vitals Vital Signs Date Time Temp Pulse Resp B/P (MAP) Pulse Ox O2 Delivery O2 Flow Rate FiO2 08/03/17 00:44 75 08/03/17 00:01 99.0 81 18 140/80 (100) 94 08/02/17 20:00 99.1 81 18 122/55 (77) 95 08/02/17 16:00 97.9 87 16 134/58 (83) 95 08/02/17 12:00 97.8 74 17 159/68 (98) 95 08/02/17 10:00 98.3 93 18 132/60 (84) 92 08/02/17 08:02 86 I/O 08/02/17 08/02/17 08/02/17 08/03/17 08/03/17 08/03/17 07:00 15:00 23:00 07:00 15:00 23:00 Intake Total 300 ml 800 ml 240 ml Output Total 850 ml 200 ml Balance -550 ml 600 ml 240 ml Intake Oral 800 ml 240 ml IV Total 300 ml Output Urine Total 850 ml 200 ml Bladder Scan Volume Amount 106 ml # Voids 3 Result Diagram: 08/03/1723 08/03/17 05 Imaging Last [address] 07/31/171543 Signed Impressions: CONCLUSION: 1. Mildly displaced right nasal bone fracture. Head CT 07/31/171543 Signed Impressions: CONCLUSION: 1. Examination within normal limits for age. No acute intracranial abnormaliti es. Cervical Spine CT 07/31/171543 Signed Impressions: CONCLUSION: 1. Partial fusion cervical spine as above. Osteopenia. No acute fracture ident ified. Objective Remarks LLE: dressings clean and dry. intact. NVI. +CKS Assessment & Plan Assessment and Plan 1) Left distal Femur Fx s/p ORIF - POD 2 -NWB -no quad sets/leg lifts -PROM 0-90deg -CKS at all times except for PT -daily dressing changes -CM for rehab placement -ortho clear for DC to SNF -f/u with Rhodes or PA in 2 weeks Prasad Oleary PA/Video Conference Specialist PA August 03, 2017 06:44
[2017-08-03 08:00] VITALS: BP 163/70; PULSE 91; RESP 20; TEMP 99.7; O2SAT 96
[2017-08-03] MEDS: MULTIVITAMIN TAB PO SCH (08:23)
[2017-08-03] MEDS: METOPROLOL TARTRATE 25 MG TAB PO SCH ×2 (08:23→21:50)
[2017-08-03] MEDS: LOSARTAN 50 MG TAB PO SCH (08:23)
[2017-08-03] MEDS: CHOLECALCIFEROL (VIT D3) 1000 UNIT TAB PO SCH (08:23)
[2017-08-03] MEDS: NIFEdipine 90 MG SUSTAINED RELEASE TAB PO SCH (08:23)
[2017-08-03] MEDS: CALCIUM/VITAMIN D 250 MG/125 U TAB PO SCH ×3 (08:23→17:07)
[2017-08-03] MEDS: DOCUSATE SODIUM 100 MG CAP PO SCH ×2 (08:26→21:00)
[2017-08-03] MEDS: ACETAMINOPHEN/HYDROcodone 325 MG/7.5 MG TAB PO PRN (11:18)
[2017-08-03] MEDS: ENOXAPARIN SODIUM 30 MG/0.3 ML SYRINGE SQ SCH (11:19)
--- NOTE | 2017-08-03 11:55 | HHI.PR ---
Subjective Remarks Pt having some issues with feeling like she is congested today Her O2 sats decreased into the mid 80's on RA and she was placed back on NC @ 2L She denies any worsening pain Pt not eating well Objective Vitals Vital Signs Date Time Temp Pulse Resp B/P (MAP) Pulse Ox O2 Delivery O2 Flow Rate FiO2 08/03/17 08:00 99.7 91 20 163/70 (101) 96 08/03/17 00:44 75 08/03/17 00:01 99.0 81 18 140/80 (100) 94 08/02/17 20:00 99.1 81 18 122/55 (77) 95 08/02/17 16:00 97.9 87 16 134/58 (83) 95 08/02/17 12:00 97.8 74 17 159/68 (98) 95 Result Diagram: 08/03/17 0523 08/03/17 0523 Other Results Laboratory Tests Test 08/02/17 07:40 08/03/17 05:23 White Blood Count 11.0 TH/MM3 12.1 TH/MM3 Red Blood Count 2.78 MIL/MM3 2.59 MIL/MM3 Hemoglobin 8.6 GM/DL 8.1 GM/DL Hematocrit 25.6 % 23.8 % Mean Corpuscular Volume 91.8 FL 91.7 FL Mean Corpuscular Hemoglobin 31.0 PG 31.4 PG Mean Corpuscular Hemoglobin Concent 33.8 % 34.3 % Red Cell Distribution Width 13.2 % 13.1 % Platelet Count 192 TH/MM3 183 TH/MM3 Mean Platelet Volume 8.5 FL 8.7 FL Neutrophils (%) (Auto) 68.5 % 66.4 % Lymphocytes (%) (Auto) 19.9 % 20.0 % Monocytes (%) (Auto) 11.0 % 11.7 % Eosinophils (%) (Auto) 0.4 % 1.4 % Basophils (%) (Auto) 0.2 % 0.5 % Neutrophils # (Auto) 7.6 TH/MM3 8.1 TH/MM3 Lymphocytes # (Auto) 2.2 TH/MM3 2.4 TH/MM3 Monocytes # (Auto) 1.2 TH/MM3 1.4 TH/MM3 Eosinophils # (Auto) 0.0 TH/MM3 0.2 TH/MM3 Basophils # (Auto) 0.0 TH/MM3 0.1 TH/MM3 CBC Comment DIFF FINAL DIFF FINAL Differential Comment Blood Urea Nitrogen 11 MG/DL Creatinine 0.71 MG/DL Random Glucose 109 MG/DL Calcium Level 7.9 MG/DL Magnesium Level 1.9 MG/DL Sodium Level 139 MEQ/L Potassium Level 3.8 MEQ/L Chloride Level 105 MEQ/L Carbon Dioxide Level 25.7 MEQ/L Anion Gap 8 MEQ/L Estimat Glomerular Filtration Rate 78 ML/MIN Imaging Last [address] 07/31/17 1544 Signed Impressions: CONCLUSION: 1. Mildly displaced right nasal bone fracture. Head CT 07/31/17 1544 Signed Impressions: CONCLUSION: 1. Examination within normal limits for age. No acute intracranial abnormaliti es. Cervical Spine CT 07/31/17 154 Signed Impressions: CONCLUSION: 1. Partial fusion cervical spine as above. Osteopenia. No acute fracture ident ified. Femur X-Ray 07/31/17 0000 Signed Impressions: CONCLUSION: Comminuted displaced distal femoral shaft fracture. Osteopenia. Chest X-Ray 07/31/17 0000 Signed Impressions: CONCLUSION: Minimal basilar atelectasis. No effusion or dense consolidation. Objective Remarks GENERAL: This is a thin 87 year old female, well-developed patient, in no apparent distress. SKIN: bilateral periorbital ecchymosis CARDIO: Regular rate and rhythm RESP: CTA bilaterally. ABD: +BS, soft, non-tender, nondistended. EXT: LLE dressings are c/d/i A/P Problem List: (1) Femur fracture, left ICD Codes: S72.92XA - Unspecified fracture of left femur, initial encounter for closed fracture Status: Acute Plan: Mechanical Falf Femur fracture, left, open - Patient is an 87 y/o female with HTN who presented to the ED at [facility] on for evaluation of an injury sustained to her left lower extremity when she tripped and fell over a rug - Left femur X ray reviewed and reveals Comminuted displaced distal femoral shaft fracture. Osteopenia - Appreciate consult from orthopedics - Pt underwent I&D of open femur fracture, open reduction internal fixation of intra-articular supracondylar distal femur fracture on 08/01/[address] Rhodes - Vancomycin and Cefazolin ordered by Ortho for open fracture - Acetaminophen, [place] and Morphine as needed for pain - Constipation precautions - IS - PT daily - Pt is NWB per ortho orders - Anticipate d/c to rehab on 08/04/17 - DVT prophylaxis with Lovenox Nasal fracture - Maxillofacial CT reveals mildly displaced right nasal bone fracture - Appreciate consult form ENT, Dr. Bruno - He is recommending outpt followup on 08/14/17 in the [facility] office for re- evaluation. - Dr. Bruno recommended some occasional flushing of the nasal passageways with normal saline, nurse instructed Hypertension - Pt continued on home Metoprolol 25 mg PO BID, Nifedipine 90 mg PO daily and Losartan 100 mg PO daily with hold parameters - Monitor BP as BP may be lowered by pain medication DVT prophylaxis with Lovenox (2) Nasal fracture ICD Codes: S02.2XXA - Fracture of nasal bones, initial encounter for closed fracture Status: Acute (3) Hypertension ICD Codes: I10 - Essential (primary) hypertension Status: Chronic Assessment and Plan Patient examined. Assessment and plan formulated with Rena Chung PA-C. I agree with the above. femur fx. s/p orif. await d/c to snf tomorrow monitor blood loss anemia Problem Qualifiers (1) Femur fracture, left: Qualified Codes: S72.402A - Unspecified fracture of lower end of left femur, initial encounter for closed fracture (2) Nasal fracture: Qualified Codes: S02.2XXA - Fracture of nasal bones, initial encounter for closed fracture Rena Chung August 03, 2017 11:55 Guy Hernandez MD August 03, 2017 13:08
[2017-08-03] MEDS ORDERED: DOCU1CAP39 PO (11:58)
--- NOTE | 2017-08-03 11:58 | HHI.DCPOC ---
Discharge Care Plan Diagnosis: (1) Hypokalemia (2) Hyperlipidemia (3) Hypertension (4) Nasal fracture (5) Femur fracture, left (6) Subtrochanteric fracture of left femur Goals to Promote Your Health * To prevent worsening of your condition and complications * To maintain your health at the optimal level Directions to Meet Your Goals Take your medications as prescribed Follow your dietary instruction Follow activity as directed Keep your appointments as scheduled Take your immunizations and boosters as scheduled If your symptoms worsen call your PCP, if no PCP go to Urgent Care Center or Emergency Room Smoking is Dangerous to Your Health. Avoid second hand smoke Call the 24-hour hour crisis hotline for domestic abuse at Rena Chung August 03, 2017 11:58
[2017-08-03 12:00] VITALS: BP 106/56; PULSE 77; RESP 16; TEMP 99; O2SAT 92
[2017-08-03 16:00] VITALS: BP 118/56; PULSE 88; RESP 16; TEMP 98.2; O2SAT 92
[2017-08-03 20:00] VITALS: BP 130/60; PULSE 91; RESP 18; TEMP 99.1; O2SAT 94
[2017-08-03] MEDS: ATORVASTATIN 10 MG TAB PO SCH (21:50)
[2017-08-04 00:01] VITALS: BP 121/56; PULSE 80; RESP 18; TEMP 99.7; O2SAT 94
[2017-08-04 04:00] VITALS: BP 143/64; PULSE 82; RESP 18; TEMP 98.5; O2SAT 93
[2017-08-04 05:17] LABS: AUTOMATED NEUTROPHIL # 8.9 TH/MM3 (1.8-7.7); BASOPHIL # 0.1 TH/MM3 (0-0.2); BASOPHIL % 0.4 % (0.0-2.0); EOSINOPHIL # 0.1 TH/MM3 (0-0.4); EOSINOPHIL % 0.9 % (0.0-4.0); HEMATOCRIT 23.5 % (35.0-46.0); LYMPH % 16.7 % (9.0-44.0); LYMPHOCYTE # 2.1 TH/MM3 (1.0-4.8); MEAN CELL VOLUME 91.7 FL (80.0-100.0); MEAN CORPUSCULAR HEMOGLOBIN 31.1 PG (27.0-34.0); MEAN CORPUSCULAR HGB CONC 33.9 % (32.0-36.0); MEAN PLATELET VOLUME 8.4 FL (7.0-11.0); MONO % 11.5 % (0.0-8.0); MONOCYTE # 1.5 TH/MM3 (0-0.9); NEUT % 70.5 % (16.0-70.0); PLATELET COUNT 206 TH/MM3 (150-450); RED BLOOD COUNT 2.57 MIL/MM3 (4.00-5.30); RED CELL DISTRIBUTION WIDTH 13.1 % (11.6-17.2); WHITE BLOOD COUNT 12.7 TH/MM3 (4.0-11.0)
--- NOTE | 2017-08-04 06:31 | PD.ORT.PN ---
Subjective Subjective Remarks POD 3 s/p ORIF let distal femur doing well.states out of bed with therapy yesterday. no complaints Objective Vitals Vital Signs Date Time Temp Pulse Resp B/P (MAP) Pulse Ox O2 Delivery O2 Flow Rate FiO2 08/04/17 04:00 98.5 82 18 143/64 (90) 93 08/04/17 00:01 99.7 80 18 121/56 (77) 94 08/03/17 20:00 99.1 91 18 130/60 (83) 94 08/03/17 16:00 98.2 88 16 118/56 (76) 92 08/03/17 12:00 99.0 77 16 106/56 (73) 92 08/03/17 08:00 99.7 91 20 163/70 (101) 96 I/O 08/03/17 08/03/17 08/03/17 08/04/17 08/04/17 08/04/17 07:00 15:00 23:00 07:00 15:00 23:00 Intake Total 240 ml 720 ml Balance 240 ml 720 ml Intake Oral 240 ml 720 ml # Voids 3 2 # Bowel Movements 2 Result Diagram: 08/04/17 0436 08/03/17 0523 Imaging Last [address] 07/31/17 1544 Signed Impressions: CONCLUSION: 1. Mildly displaced right nasal bone fracture. Head CT 07/31/17 1544 Signed Impressions: CONCLUSION: 1. Examination within normal limits for age. No acute intracranial abnormaliti es. Cervical Spine CT 07/31/17 1544 Signed Impressions: CONCLUSION: 1. Partial fusion cervical spine as above. Osteopenia. No acute fracture ident ified. Objective Remarks LLE: dressings clean and dry. intact. NVI. +CKS Assessment & Plan Assessment and Plan 1) Left distal Femur Fx s/p ORIF - POD 3 -NWB -no quad sets/leg lifts -PROM 0-90deg -CKS at all times except for PT -daily dressing changes -CM for rehab placement -ortho clear for DC to SNF -f/u with Carmelo or PA in 2 weeks Prasad Oleary/[employer] Admin PA Aug 04, 2017 06:31
[2017-08-04 08:00] VITALS: BP 121/60; PULSE 85; RESP 16; TEMP 98.3; O2SAT 94
[2017-08-04] MEDS: LOSARTAN 50 MG TAB PO SCH (08:14)
[2017-08-04] MEDS: MULTIVITAMIN TAB PO SCH (08:14)
[2017-08-04] MEDS: NIFEdipine 90 MG SUSTAINED RELEASE TAB PO SCH (08:14)
[2017-08-04] MEDS: CHOLECALCIFEROL (VIT D3) 1000 UNIT TAB PO SCH (08:14)
[2017-08-04] MEDS: CALCIUM/VITAMIN D 250 MG/125 U TAB PO SCH ×2 (08:14→13:23)
[2017-08-04] MEDS: METOPROLOL TARTRATE 25 MG TAB PO SCH (08:14)
[2017-08-04] MEDS: DOCUSATE SODIUM 100 MG CAP PO SCH (08:18)
--- NOTE | 2017-08-04 11:34 | HHI.DS ---
Discharge Summary Admission Date July 31, 2017 at 18:03 Discharge Date: Aug 04, 2017 Admitting Diagnosis L distal femur fx; nasal fx (1) Femur fracture, left ICD Codes: S72.92XA - Unspecified fracture of left femur, initial encounter for closed fracture Status: Acute (2) Nasal fracture ICD Codes: S02.2XXA - Fracture of nasal bones, initial encounter for closed fracture Status: Acute (3) Hypertension ICD Codes: I10 - Essential (primary) hypertension Status: Chronic Consultants Dr. Gabriele Rhodes - Orthopedic Surgery Dr. Maximino Bruno - ENT Brief History 87-year-old female with history of hypertension, presents emergency department for evaluation of an injury sustained to her left lower extremity when she tripped and fell over a rug today. Patient states she fell landing on her knee. Upon [facility] arrival, patient had an obvious deformity of the distal left thigh. She had also struck her face. She reports very mild facial and leg pain at this time, stating that she got "a lot of pain medication" in the ambulance. She tells me that she did have epistaxis initially but this has resolved. She denies any nausea or vomiting. She reports no focal deficits or weakness. She denies any alterations in sensation. Patient does have history of previous left and right hip fracture repairs following mechanical falls . In er found to have left femer fracture and nasal fracture admit for surgery, also has small wound less then1 cm on left leg not communicating with fracture will start on antibiotics. CBC/BMP: 08/04/17 0436 08/03/17 0523 Significant Findings Laboratory Tests Test 08/02/17 07:40 08/03/17 05:23 08/04/17 04:36 Red Blood Count 2.78 MIL/MM3 (4.00-5.30) 2.59 MIL/MM3 (4.00-5.30) 2.57 MIL/MM3 (4.00-5.30) Hemoglobin 8.6 GM/DL (11.6-15.3) 8.1 GM/DL (11.6-15.3) 8.0 GM/DL (11.6-15.3) Hematocrit 25.6 % (35.0-46.0) 23.8 % (35.0-46.0) 23.5 % (35.0-46.0) Monocytes (%) (Auto) 11.0 % (0.0-8.0) 11.7 % (0.0-8.0) 11.5 % (0.0-8.0) Monocytes # (Auto) 1.2 TH/MM3 (0-0.9) 1.4 TH/MM3 (0-0.9) 1.5 TH/MM3 (0-0.9) White Blood Count 12.1 TH/MM3 (4.0-11.0) 12.7 TH/MM3 (4.0-11.0) Neutrophils # (Auto) 8.1 TH/MM3 (1.8-7.7) 8.9 TH/MM3 (1.8-7.7) Random Glucose 109 MG/DL (74-106) Calcium Level 7.9 MG/DL (8.5-10.1) Estimat Glomerular Filtration Rate 78 ML/MIN (>89) Neutrophils (%) (Auto) 70.5 % (16.0-70.0) Imaging Last Impressions Femur X-Ray 08/01/17 0000 Signed Impressions: CONCLUSION: 1. Left distal femoral ORIF, as above. Maxillofacial CT 07/31/17 154 Signed Impressions: CONCLUSION: 1. Mildly displaced right nasal bone fracture. Head CT 07/31/17 1544 Signed Impressions: CONCLUSION: 1. Examination within normal limits for age. No acute intracranial abnormaliti es. Cervical Spine CT 07/31/17 1544 Signed Impressions: CONCLUSION: 1. Partial fusion cervical spine as above. Osteopenia. No acute fracture ident ified. Chest X-Ray 07/31/17 0000 Signed Impressions: CONCLUSION: Minimal basilar atelectasis. No effusion or dense consolidation. PE at Discharge GENERAL: This is a thin 87 year old female, well-developed patient, in no apparent distress. SKIN: bilateral periorbital ecchymosis CARDIO: Regular rate and rhythm RESP: CTA bilaterally. ABD: +BS, soft, non-tender, nondistended. EXT: LLE dressings are c/d/i Hospital Course Mechanical Falf Femur fracture, left, open - Patient is an 87 y/o female with HTN who presented to the ED at [facility] on for evaluation of an injury sustained to her left lower extremity when she tripped and fell over a rug. Left femur X ray reviewed and reveals Comminuted displaced distal femoral shaft fracture and osteopenia. Appreciate consult from orthopedics. Pt underwent I&D of open femur fracture, open reduction internal fixation of intra-articular supracondylar distal femur fracture on 08/01/[address] Rhodes. Vancomycin and Cefazolin given by Ortho for open fracture. Acetaminophen, [place] and Morphine as needed for pain. Constipation precautions. Pt is NWB per ortho orders. DVT prophylaxis with Xarelto. Nasal fracture - Maxillofacial CT reveals mildly displaced right nasal bone fracture. Appreciate consult form ENT, Dr. Bruno. He is recommending outpt followup on 01/21 in the [facility] for re-evaluation. Dr. Bruno recommended some occasional flushing of the nasal passageways with normal saline, nurse instructed Hypertension - Pt continued on home Metoprolol 25 mg PO BID, Nifedipine 90 mg PO daily and Losartan 100 mg PO daily with hold parameters. Monitor BP as BP may be lowered by pain medication. Pt Condition on Discharge: Stable Discharge Disposition: Discharge to SNF Discharge Instructions DIET: Follow Instructions for: As Tolerated, No Restrictions Activities you can perform: Non Weight Bearing, See Additionl Instruction Other Activity Instructions: Weight bearing recommendations per Ortho Follow up Referrals: Ear Nose Throat - 08/14/[address] maximino Bruno Orthopedics - 2 Weeks @ [facility] with Gabriele Rhodes MD PCP Follow-up - [address] Regis Mcgrath New Medications: Calcium Carbonate-Vitamin D (Calcium 600+D 200) 600-200 Mg-Unit Tab 1 TAB PO BID for Nutritional Supplement, #60 TAB 0 Refills Cholecalciferol (Vitamin D3) 2,000 Unit Cap 2000 UNITS PO DAILY for Nutritional Supplement, #60 CAP 0 Refills Ergocalciferol (Ergocalciferol) 50,000 Unit Cap 45872 UNITS PO Q7D for Nutritional Supplement, #8 CAP Hydrocodone-Acetaminophen (Hydrocodone-Acetaminophen) 7.5 Mg-325 Mg Tab 1 TAB PO Q4H PRN for PAIN, #60 TAB 0 Refills Rivaroxaban (Xarelto) 10 Mg Tab 10 MG PO DAILY for Blood Clot Prevention, #14 TAB 0 Refills Walker/Adult/Folding (Walker/Adult/Folding) 1 Mis Mis EA .XX DIRECTED, #1 0 Refills Wheelchair Elevated Leg (Wheelchair Elevated Leg) 1 Mis Mis EA .XX DIRECTED, #1 0 Refills Docusate Sodium (Dok) 100 Mg Cap 100 MG PO BID for constipation precautions, #30 CAP Continued Medications: Alendronate (Alendronate) 70 Mg Tab 70 MG PO Q7D for Osteporosis Treatment, #4 TAB 0 Refills Atorvastatin (Atorvastatin) 10 Mg Tab 10 MG PO HS for Cholesterol Management, #30 TAB 0 Refills Coenzyme Q10 (Ubidecarenone) (Coenzyme Q10 (Ubidecarenone)) 200 Mg Cap Losartan (Losartan) 100 Mg Tab 100 MG PO DAILY for Blood Pressure Management, #30 TAB 0 Refills Metoprolol Tartrate (Metoprolol Tartrate) 25 Mg Tab 25 MG PO Q12HR for htn, #60 TAB Multiple Vitamin (Multi-Vitamin Daily) 1 Tab Tab 1 TAB PO DAILY for Nutritional Supplement, TAB 0 Refills Nifedipine ER 24 HR (Nifedipine ER 24 HR) 90 Mg Tab 90 MG PO DAILY, #30 TAB 0 Refills Discontinued Medications: Aspirin (Aspirin) 81 Mg Chew 81 MG CHEW DAILY, TAB 0 Refills Cholecalciferol (Vitamin D-3) 1,000 Unit Cap 4000 UNITS PO DAILY Rena Chung Aug 04, 2017 11:34 Guy Hernandez MD Aug 04, 2017 12:12
[2017-08-04 12:00] VITALS: BP 154/66; PULSE 93; RESP 16; TEMP 98.8; O2SAT 92
[2017-08-04] MEDS: ENOXAPARIN SODIUM 30 MG/0.3 ML SYRINGE SQ SCH (13:23)
[2017-08-04] MEDS: ACETAMINOPHEN/HYDROcodone 325 MG/7.5 MG TAB PO PRN (13:24)
== END 2017-08-04 14:15 | DRG 482 ==
LOC: NEPE 15:28 → NEDA 18:03 → N06A 22:48
PROVIDERS: ADMIT Hospitalist; ATTEND Hospitalist
PROC: 0QSC04Z Reposition Left Lower Femur with Internal Fixation Device, Open Approach (ICD-10-PCS; principal; 2017-08-01 10:54)
DX: S72.352B Displaced comminuted fracture of shaft of left femur, initial encounter for open fracture type I or II (principal); S71.112A Laceration without foreign body, left thigh, initial encounter; I10 Essential (primary) hypertension; S02.2XXA Fracture of nasal bones, initial encounter for closed fracture; E87.6 Hypokalemia; M81.0 Age-related osteoporosis without current pathological fracture; E78.5 Hyperlipidemia, unspecified; Z79.82 Long term (current) use of aspirin; Z79.899 Other long term (current) drug therapy; W01.0XXA Fall on same level from slipping, tripping and stumbling without subsequent striking against object, initial encounter
CPT/HCPCS: 51702; 70450; 70486; 71045; 72125; 73552; 76000; 80048; 82652; 83735; 85025; 85610; 85730; 86850; 86900; 86901; 93005; 94150; 96365; 96375; C1713; J0690; J1580; J1650; J2370; J2405; J2710; J2765; J3010; J3370; J7050; J7120; L1830